=== PATIENT | female | born 1990 | race Caucasian/White ===

== ENCOUNTER 2020-12-18 13:20 | Inpatient (IN) | payer MEDICAID ==
[~2020-12-18] VITALS: Ht 170.2 cm; Wt 92.2 kg
--- NOTE | 2020-12-18 13:43 | NUR ---
MEDICAL STAFF NOTIFIED OF PATIENT SYMPTOMS.
[2020-12-18 14:06] LABS: BASOPHILS 0.2 % (0-2); EOSINOPHILS 0.2 % (0-7); HEMATOCRIT 39.6 % (36.0-48.0); HEMOGLOBIN 13.4 g/dL (12-16); IMMATURE GRANULOCYTES 0.4 % (0-5); LYMPHOCYTES 18.6 % (15-50); MCH 30.2 pg (26.0-34.0); MCHC 33.8 g/dL (31.0-37.0); MCV 89.2 fL (80.0-100.0); MONOCYTES 9.1 % (2-11); NEUTROPHIL ABS# 6.53 10x3/uL (1.56-6.13); NEUTROPHILS 71.5 % (40-80); PLATELET COUNT 220 10x3/uL (130-400); RBC 4.44 10x6/uL (4.00-5.40); RDW 12.1 % (11.5-14.5); WBC 9.1 10x3/uL (4.8-10.8)
[2020-12-18 14:13] LABS: CALC OSMOLALITY 278 mosm/kg (275-300); CALCIUM 9.8 mg/dL (8.5-10.1); CARBON DIOXIDE 27.1 mmol/L (21.0-32.0); CHLORIDE - SERUM 100 mmol/L (98-107); CREATININE - SERUM 0.9 mg/dL (0.6-1.3); GLUCOSE 101 mg/dL (74-106); HCG SERUM NEGATIVE (NEGATIVE); POTASSIUM - SERUM 3.8 mmol/L (3.5-5.1); SODIUM 139 mmol/L (136-145); UREA NITROGEN 15 mg/dL (7-18); eGFR NON AFRICAN AMERICAN 78 mL/min (90-120)
[2020-12-18 14:41] LABS: ALBUMIN 4.4 g/dL (3.4-5.0); ALKALINE PHOSPHATASE 45 U/L (30-120); ALT (SGPT) 33 U/L (10-68); BILIRUBIN - TOTAL 0.45 mg/dL (0.2-1.3); CREATINE KINASE 598 UL (21-215); VALPROIC ACID (DEPAKOTE) 10.5 ug/mL (50.0-100.0)
[2020-12-18 14:42] LABS: CKMB 3.1 U/L (0.0-3.6)
[2020-12-18 15:32] LABS: UDS - AMPHET NEGATIVE QUAL (NEGATIVE); UDS - BARB NEGATIVE QUAL (NEGATIVE); UDS - BENZO POSITIVE QUAL (NEGATIVE); UDS - COCAINE NEGATIVE QUAL (NEGATIVE); UDS - OPIATE NEGATIVE QUAL (NEGATIVE); UDS - PCP NEGATIVE QUAL (NEGATIVE); UDS - THC NEGATIVE QUAL (NEGATIVE)
[2020-12-18 15:43] LABS: BILIRUBIN NEGATIVE (NEGATIVE); KETONE MODERATE mg/dL (NEGATIVE); NITRITE NEGATIVE (NEGATIVE); UROBILINOGEN NORMAL mg/dL (< 2)
[2020-12-18 15:47] LABS: WHITE CELLS - URINE 0-5 HPF (0-4)
[2020-12-18 15:48] LABS: BACTERIA MODERATE HPF (NONE SEEN)
[2020-12-18] MEDS ORDERED: HALDOL5 MG PO (17:08)
[2020-12-18] MEDS ORDERED: ZOLOFT100 MG PO (17:11)
[2020-12-18 17:12] VITALS: BP 125/75; Ht 170.2 cm; Wt 92.2 kg
--- NOTE | 2020-12-18 17:24 | NUR ---
IN ROOM, MOTHER AT BEDSIDE BED LOW POSITION, CALL LIGHT IN REACH. BED ALARM ON. WILL CONTINUE TO MONITOR.
[2020-12-18 17:29] VITALS: BP 122/78
[2020-12-18 21:13] VITALS: BP 129/74
[2020-12-19 00:38] VITALS: BP 110/68
[2020-12-19 05:24] VITALS: BP 119/70
[2020-12-19 07:19] LABS: BASOPHILS 0.3 % (0-2); HEMATOCRIT 35.3 % (36.0-48.0); HEMOGLOBIN 11.7 g/dL (12-16); IMMATURE GRANULOCYTES 0.1 % (0-5); LYMPHOCYTE ABS# 2.09 10x3/uL (1.18-3.74); LYMPHOCYTES 26.8 % (15-50); MCH 29.7 pg (26.0-34.0); MCHC 33.1 g/dL (31.0-37.0); MCV 89.6 fL (80.0-100.0); MEAN PLATELET VOLUME 11.5 fL (7.4-10.4); MONOCYTES 9.1 % (2-11); NEUTROPHILS 62.7 % (40-80); PLATELET COUNT 199 10x3/uL (130-400); RBC 3.94 10x6/uL (4.00-5.40); RDW 12.3 % (11.5-14.5); WBC 7.8 10x3/uL (4.8-10.8)
--- NOTE | 2020-12-19 07:30 | NUR ---
MORNING ROUNDS WERE MADE, FOUND PATIENT SOAKING WET IN URINE. FULL LINEN CHANGE. RESTING IN BED WITH EYES CLOSED BUT IS ALERT AND TALKING THIS MORNING. DENIES ANY NEEDS. BED IN LOWEST POSITION, BED RAILS X2, CALL LIGHT WTHIN REACH. WILL CONTINUE POC.
[2020-12-19 07:36] LABS: ALBUMIN 3.5 g/dL (3.4-5.0); ALKALINE PHOSPHATASE 37 U/L (30-120); ALT (SGPT) 25 U/L (10-68); BILIRUBIN - TOTAL 0.35 mg/dL (0.2-1.3); CALC OSMOLALITY 277 mosm/kg (275-300); CALCIUM 8.2 mg/dL (8.5-10.1); CHLORIDE - SERUM 104 mmol/L (98-107); CKMB 3.4 U/L (0.0-3.6); CREATINE KINASE 517 UL (21-215); CREATININE - SERUM 0.8 mg/dL (0.6-1.3); GLUCOSE 130 mg/dL (74-106); MAGNESIUM - SERUM 2.1 mg/dL (1.8-2.4); PHOSPHOROUS 2.8 mg/dL (2.5-4.9); POTASSIUM - SERUM 3.5 mmol/L (3.5-5.1); PROTEIN - SERUM 6.5 g/dL (6.4-8.2); SODIUM 139 mmol/L (136-145); TROPONIN-I < 0.017 ng/mL (0.000-0.060); eGFR NON AFRICAN AMERICAN 89 mL/min (90-120)
[2020-12-19 07:38] LABS: UREA NITROGEN 7 mg/dL (7-18)
--- NOTE | 2020-12-19 09:15 | NUR ---
AAOX4 UPON ENTERING. REQUESTING ATIVAN. PRN ATIVAN GIVEN. MORNING MEDICATION GIVEN AT THIS TIME WELL. TOLERATED WELL. RESTING COMFORTABLY IN BED, UP RIGHT. DENIES ANY NEEDS AT THIS TIME. BED IN LOWEST POSITION, BED RAILS X2, CALL LIGHT WITHIN REACH. WILL CONTINUE POC.
[2020-12-19 09:29] VITALS: BP 149/77
--- NOTE | 2020-12-19 11:22 | NUR ---
IN BED, EYES CLOSED. BREATHING EVEN AND NONLABORED. NO S/S OF DISTRESS NOTED AT THIS TIME. WILL CONTINUE POC.
[2020-12-19 14:22] VITALS: BP 126/70
--- NOTE | 2020-12-19 15:12 | NUR ---
I have reviewed this patient and I concur with the Shift Assessment completed by the Licensed Practical Nurse today this shift.
--- NOTE | 2020-12-19 19:00 | NUR ---
BEDSIDE REPORT RECEIVED AND CARE OF PT ASSUMED. PT LYING IN LOW GALLEGO'S POSITION VISITING WITH HER MOTHER. IV TO RIGHT AC SALINE LOCKED. SCD'S IN USE ON BLE. WILL MONITOR FOR NEEDS.
[2020-12-19 19:04] VITALS: BP 132/69
--- NOTE | 2020-12-19 21:30 | NUR ---
COLLECTED URINE FOR ORDERED CULTURE AND DELIVERED TO LAB.
--- NOTE | 2020-12-19 21:42 | NUR ---
GAVE PT ATIVAN 2 MG IVP PER REQUEST FOR "SHAKES" AND VERY ANXIOUS. WILL MONITOR FOR EFFECTIVENESS.
--- NOTE | 2020-12-19 22:15 | NUR ---
PT PRESSING CALL LIGHT EVERY 5-10 MINUTES FOR NUMEROUS SOMATIC COMPLAINTS. WANTING WATER CONSTANTLY AND THEN NEEDING BEDPAN CONSTANTLY.
[2020-12-19 22:27] VITALS: BP 123/85
--- NOTE | 2020-12-20 01:24 | NUR ---
GAVE ATIVAN 2 MG IVP PER PT REQUEST FOR ANXIETY AND "SHAKING". PT HAS PRESSED CALL LIGHT EVERY 5 MINUTES ALL NIGHT LONG FOR A VARIETY OF COMPLAINTS....TOO COLD...TOO HOT...WANTS MORE WATER...BEDPAN EVERY 10-15 MINUTES...WANTS HER LEGS MOVED, UNABLE TO MOVE DUE TO BRUISES...WANTS TO CALL FAMILY....WANTS US TO "HELP HER GO TO SLEEP".
--- NOTE | 2020-12-20 01:50 | NUR ---
PT CONTINUES TO PRESS CALL LIGHT EVERY 5 MINUTES...THIS TIME SHE STATES SHE WANTS TO KILL HERSELF...THEN SAID NO, NO...I DON'T. CALLED [employer]OURNEY[employer] WHO IS ORDERING A PSYCH SCREEN ON HER FOR SUICIDAL IDEATION.
--- NOTE | 2020-12-20 02:50 | NUR ---
ASSESSMENT COMPLETED. PT RELATED SHE DID MAKE THE COMMENT REGARDING WANTING TO HOWEVER RELATES SHE DID NOT MEAN IT NOR WOULD SHE EVER TRY TO HURT HERSELF THAT SHE HAS A FIVE YEAR DAUGHTER. RELATED SHE WAS JUST UPSET BECAUSE WHEN SHE WOKE UP HER MOTHER HAD GONE HOME AND SHE DIDN'T GET TO SEE HER BEFORE SHE LEFT BECAUSE SHE WAS SLEEPING. RELATES SHE LIVES WITH HER PARENTS AND DOES NOT WANT TO BE ALONE IN THE HOSPITAL. PATIENT WAS A LEVEL 0 FOR SUICIDE RISK. RESOURCE REVIEWED AND GIVEN TO PATIENT. SHE VERBALIZED UNDERSTANDING.
[2020-12-20 05:27] LABS: BASOPHILS 0.3 % (0-2); EOSINOPHILS 1.4 % (0-7); HEMATOCRIT 35.9 % (36.0-48.0); HEMOGLOBIN 12.1 g/dL (12-16); IMMATURE GRANULOCYTES 0.2 % (0-5); LYMPHOCYTE ABS# 2.19 10x3/uL (1.18-3.74); LYMPHOCYTES 19.9 % (15-50); MCH 30.3 pg (26.0-34.0); MCHC 33.7 g/dL (31.0-37.0); MCV 89.8 fL (80.0-100.0); MEAN PLATELET VOLUME 11.1 fL (7.4-10.4); MONOCYTES 11.3 % (2-11); NEUTROPHIL ABS# 7.39 10x3/uL (1.56-6.13); NEUTROPHILS 66.9 % (40-80); PLATELET COUNT 211 10x3/uL (130-400); RDW 12.2 % (11.5-14.5)
[2020-12-20 05:52] LABS: ALBUMIN 3.5 g/dL (3.4-5.0); ALKALINE PHOSPHATASE 36 U/L (30-120); ALT (SGPT) 25 U/L (10-68); BILIRUBIN - TOTAL 0.22 mg/dL (0.2-1.3); CALC OSMOLALITY 276 mosm/kg (275-300); CALCIUM 8.9 mg/dL (8.5-10.1); CARBON DIOXIDE 27.4 mmol/L (21.0-32.0); CHLORIDE - SERUM 104 mmol/L (98-107); CREATININE - SERUM 0.8 mg/dL (0.6-1.3); GLUCOSE 112 mg/dL (74-106); MAGNESIUM - SERUM 1.9 mg/dL (1.8-2.4); POTASSIUM - SERUM 3.3 mmol/L (3.5-5.1); PROTEIN - SERUM 6.7 g/dL (6.4-8.2); SODIUM 139 mmol/L (136-145); UREA NITROGEN 8 mg/dL (7-18); eGFR NON AFRICAN AMERICAN 89 mL/min (90-120)
--- NOTE | 2020-12-20 06:25 | NUR ---
POTASSIUM LEVEL 3.3 THIS AM REQUIRING COVERAGE WITH 40 MEQ K-DUR PO PER THE [employer]. ORDER PLACED TO RE-CHECK IN 4 HOURS.
--- NOTE | 2020-12-20 08:37 | NUR ---
AAO UPON ENTERING. ADMINISTERED MORNING MEDICATION, NO DIFFICULTIES. RESTING COMFORTABLY IN BED. DENIES ANY NEEDS AT THIS TIME. BED IN LOWEST POSITION, BED RIALS X2, CALL LIGHT WITHIN REACH. WILL CONTINUE POC.
[2020-12-20 09:47] VITALS: BP 135/81
--- NOTE | 2020-12-20 17:10 | NUR ---
PT COMPLAINS OF NAUSEA, SWEATING AND ITCHING. NEW RASH HAS DEVELOPED ON THE CHEST AND UPPER ARMS. CALLED CRIST[facility] POPE. NEW ORDERS FOR MEDICATION ENTERED. PLACED PT ON CONTINUOUS O2 AND SUPPLEMENTAL 02 @ 2L VIA NASAL CANNULA WHILE WAITING FOR ORDERS TO VERIFY. DOES NOT COMPLAIN OF SOB OR SWELLING FEELING IN THE THROAT AT THIS TIME.
--- NOTE | 2020-12-20 17:35 | NUR ---
NEW MEDICATIONS GIVEN, TOLERATED WELL THUS FAR, PT HAS NO NEW COMPLAINTS AT THIS TIME. SITTING UPRIGHT IN BED. TURNED AC DOWN, REMOVED COVERS. STILL WEAR PULSE OX AND SUPPLEMENTAL O2. DENIES ANY NEEDS AT THIS TIME. WILL REASSESS PT IN 15 MINUTES AND CONTINUE POC.
[2020-12-20 18:20] VITALS: BP 128/82
--- NOTE | 2020-12-20 19:00 | NUR ---
BEDSIDE REPORT RECEIVED AND CARE OF PT ASSUMED. PT LYING IN SUPINE POSITION WATCHING TV. SHE REMAINS CONFUSED AND ATTENTION SEEKING. VITALS STABLE AND SPO2 98% AT THIS TIME. WILL MONITOR FOR NEEDS.
--- NOTE | 2020-12-20 21:33 | NUR ---
HS MEDICATIONS GIVEN...GAVE ATIVAN 2 MG IVP PER PT REQUEST FOR ANXIETY.
[2020-12-20 22:06] VITALS: BP 110/66
--- NOTE | 2020-12-21 03:00 | NUR ---
PT RESTED SINCE RECEIVING ATIVAN AT 2132....MORE SLEEP THAT SHE HAS HAD IN A COUPLE OF DAYS.
[2020-12-21 07:00] LABS: BASOPHILS 0.2 % (0-2); EOSINOPHILS 0 % (0-7); HEMATOCRIT 39.2 % (36.0-48.0); HEMOGLOBIN 13.2 g/dL (12-16); IMMATURE GRANULOCYTES 0.2 % (0-5); LYMPHOCYTE ABS# 1.77 10x3/uL (1.18-3.74); LYMPHOCYTES 16.6 % (15-50); MCH 29.9 pg (26.0-34.0); MCHC 33.7 g/dL (31.0-37.0); MCV 88.9 fL (80.0-100.0); MEAN PLATELET VOLUME 11.3 fL (7.4-10.4); MONOCYTES 11.5 % (2-11); NEUTROPHIL ABS# 7.62 10x3/uL (1.56-6.13); NEUTROPHILS 71.5 % (40-80); RBC 4.41 10x6/uL (4.00-5.40); WBC 10.7 10x3/uL (4.8-10.8)
[2020-12-21 07:06] LABS: PLATELET COUNT 264 10x3/uL (130-400)
[2020-12-21 07:27] LABS: ALBUMIN 3.8 g/dL (3.4-5.0); ALKALINE PHOSPHATASE 42 U/L (30-120); ALT (SGPT) 24 U/L (10-68); BILIRUBIN - TOTAL 0.27 mg/dL (0.2-1.3); CALC OSMOLALITY 272 mosm/kg (275-300); CALCIUM 9.5 mg/dL (8.5-10.1); CARBON DIOXIDE 25.5 mmol/L (21.0-32.0); CHLORIDE - SERUM 101 mmol/L (98-107); CREATININE - SERUM 0.7 mg/dL (0.6-1.3); GLUCOSE 107 mg/dL (74-106); MAGNESIUM - SERUM 2.2 mg/dL (1.8-2.4); PHOSPHOROUS 5.1 mg/dL (2.5-4.9); PROTEIN - SERUM 7.4 g/dL (6.4-8.2); SODIUM 137 mmol/L (136-145); UREA NITROGEN 11 mg/dL (7-18); eGFR NON AFRICAN AMERICAN > 90 mL/min (90-120)
[2020-12-21 08:43] VITALS: BP 124/82
--- NOTE | 2020-12-21 09:00 | NUR ---
RECIEVED BEDSIDE REPORT. BED LOW POSITION, CALL LIGHT IN REACH. DENIES NEEDS AT THIS TIME. FREE FROM SIGNS OF DISTRESS. WILL CONTINUE TO MONITOR.
--- NOTE | 2020-12-21 13:18 | MORECARE ---
CASE MANAGEMENT DISCHARGE SUMMARY PATIENT: KB OLVERA UNIT: [id number] ADM DATE: 12/18/20 AGE: 30 : 90 SEX: F ROOM/BED: D.[facility] AUTHOR: SARABJIT,DOC PHYSICIAN: REFERRING PHYSICIAN: EVIE YANG MD DATE OF SERVICE: 12/21/20 Case Management Discharge Planning Summary DCP REVIEW SUMMARY ANTICIPATED D/C DATE: EXPECTED LOS : CASE STATUS: DCP Initiated INITIAL REVIEW: 12/18/2020 INITIAL REVIEWER: Yolanda Garcia FINAL DISCHARGE DISPOSITION: : FINAL REVIEWER: FINAL REVIEW DATE: DCP Focus Questions & Answers DCP Screen QUESTION: ANSWER High Risk Factors: : Psychological: Depression and/or major BH Dx req inter DCP Evaluation QUESTION: ANSWER Patient's ability to cope with chronic illness : d. No chronic illness Would patient like to participate in any Care Coordination programs (if applicable): : Not applicable Mental health screen: : No mental health history DCP Re-evaluation QUESTION: ANSWER Would patient like to participate in any Care Coordination programs (if applicable): : Not applicable PATIENT: KB OLVERA ENCOUNTER: [id number] MEDICAL RECORD#: [id number] ADMISSION DATE: 12/18/2020 DISCHARGE DATE: ATTENDING MD: EVIE BEAVERS : AGE: 30 MARITAL STATUS: S DC PLAN ID: [id number] FACILITY: [facility] PRINTED ON: 12/21/20 13:18 CT All edits/amendments must be made on the electronic document DICTATION DATE: 12/21/201317 SOLAR PROCESS ENGINEER: DM 12/21/20 131 RPT#: [id number] DC DATE: STATUS: ADM IN [facility] [address] [place] [address] END OF REPORT
--- NOTE | 2020-12-21 13:32 | MORECARE ---
CASE MANAGEMENT DISCHARGE SUMMARY PATIENT: KB OLVERA UNIT: [id number] ADM DATE: 12/18/20 AGE: 30 : 90 SEX: F ROOM/BED: D.2214 AUTHOR: JAMES WHIPPLE PHYSICIAN: REFERRING PHYSICIAN: EVIE YANG MD DATE OF SERVICE: 12/21/20 Case Management Discharge Planning Summary DCP REVIEW SUMMARY ANTICIPATED D/C DATE: EXPECTED LOS : CASE STATUS: DCP Initiated INITIAL REVIEW: 12/18/2020 INITIAL REVIEWER: Yolanda Garcia FINAL DISCHARGE DISPOSITION: : FINAL REVIEWER: FINAL REVIEW DATE: DCP Focus Questions & Answers DCP Screen QUESTION: ANSWER High Risk Factors: : Psychological: Depression and/or major BH Dx req inter DCP Evaluation QUESTION: ANSWER Patient and/or caregiver agree upon recommended discharge plan? : Yes Family / Caregiver's ability to cope with chronic illness: : c. Inadequate (Enables pt. to make bad choices, cannot meet pt's. needs, difficult family dynamics) Patient's current cognitive status: : Intermittently confused / memory changes Patient gives permission to discuss discharge plans with: (name, relationship and number) : MOTHER Patient's ability to cope with chronic illness : a. Adequate (0-3 ED visits in 6 mos., adequate financial resources, attends scheduled appts.) Does the patient have the ability to pay for or attain post discharge needs / services? : Yes Functional screen assessment: : New onset in difficulty in gait, balance, or transfer difficulties Functional screen assessment: : Basic needs can adequately be met by self Family / Caregiver's ability to cope with chronic illness: : b. Minimal (occasionally not dependable to meet pt's. needs, can meet pt's. basic ADL's) Physical Status: : Partial care dependence Equipment needed for post hospitalization: : Walker - Rolling Is there a likelihood that the patient will require additional services to return to the preadmission environment? : Yes Functional screen comments: : NEEDS THEARPY Living Arrangements: : Home with Parents Partial Dependence, assistance required for: : Bathing Partial Dependence, assistance required for: : Ambulation / Mobility Results of this evaluation have been discussed with: : Guardian Patient with capacity for self-care or can be cared for in same environment as prior to hospitalization? : No Living arrangements comments: : LIVES WITH PARENTS & 5 YEAR OLD SON Baseline cognitive status: : *Oriented to person, place, situation, time and present Comments: : MOM IN ROOM WHILE I WAS SPEAKING WITH PATIENT Physical environment referral comments (if applicable): : REFERAL SENT TO [facility] Medication Management: : Evidence of High Risk Meds (check hospital policy) Planned post hospital services available for patient? : Yes Pharmacy name(s): : [facility] [address] Planned post hospital services covered by insurance plan? : Yes Does Patient have transportation to get home and to follow-up medical appointments when discharged from the hospital? : Yes Would patient like to participate in any Care Coordination programs (if applicable): : Not applicable Does the patient have electricity at home? : Yes Does the patient have running water in their house? : Yes Equipment in use: : None Mental health screen: : Currently under the care of mental health provider Mental health provider name and contact information: : DR FELIPE LOZADA Psychosocial status: : Adult with physical limitations Psychosocial status: : Adult with cognitive limitations Resources / Services in place: : Inpatient rehabilitation facility Contact information for resources in use: : WAS JUST IN [facility] Problems identified by the patient regarding discharge: : SOMEONE TO HELP CARE FOR HER DCP Re-evaluation QUESTION: ANSWER Would patient like to participate in any Care Coordination programs (if applicable): : Not applicable PATIENT: KB OLVERA ENCOUNTER: [id number] MEDICAL RECORD#: [id number] ADMISSION DATE: 12/18/2020 DISCHARGE DATE: ATTENDING MD: EVIE BEAVERS : AGE: 30 MARITAL STATUS: S DC PLAN ID: [id number] FACILITY: [facility] PRINTED ON: 12/21/20 13:31 CT All edits/amendments must be made on the electronic document DICTATION DATE: 12/21/20 1331 CORK INSULATION SETTER: DM 12/21/20 1331 RPT#: [id number] DC DATE: STATUS: ADM IN [facility] [address] [place] [address] END OF REPORT
[2020-12-21 14:19] VITALS: BP 129/73
--- NOTE | 2020-12-21 16:50 | NUR ---
REHAB PRESCREEN ORDER RECEIVED. UNFORTUNATELLY WE ARE UNABLE TO ACCEPT MEDICAID PATIENTS AND THEREFORE WILL HAVE TO DECLINE THE PATIENT. THANK YOU FOR THE REFERRAL. SLICK NAVARRO RN CLINICAL LIAISON, INPATIENT REHAB.
[2020-12-21 17:30] VITALS: BP 124/66
[2020-12-22] VITALS: BP 121/67
[2020-12-22 04:00] VITALS: BP 124/75
[2020-12-22 06:30] LABS: ALBUMIN 3.3 g/dL (3.4-5.0); ALKALINE PHOSPHATASE 33 U/L (30-120); ALT (SGPT) 20 U/L (10-68); BILIRUBIN - TOTAL 0.22 mg/dL (0.2-1.3); CALC OSMOLALITY 273 mosm/kg (275-300); CALCIUM 8.8 mg/dL (8.5-10.1); CARBON DIOXIDE 27.3 mmol/L (21.0-32.0); CHLORIDE - SERUM 104 mmol/L (98-107); CREATININE - SERUM 0.7 mg/dL (0.6-1.3); GLUCOSE 86 mg/dL (74-106); PHOSPHOROUS 3.6 mg/dL (2.5-4.9); POTASSIUM - SERUM 3.9 mmol/L (3.5-5.1); PROTEIN - SERUM 6.5 g/dL (6.4-8.2); SODIUM 138 mmol/L (136-145); UREA NITROGEN 11 mg/dL (7-18); eGFR NON AFRICAN AMERICAN > 90 mL/min (90-120)
[2020-12-22 06:46] LABS: BASOPHILS 0.3 % (0-2); EOSINOPHILS 2.5 % (0-7); HEMATOCRIT 36.9 % (36.0-48.0); HEMOGLOBIN 12.3 g/dL (12-16); IMMATURE GRANULOCYTES 0.2 % (0-5); LYMPHOCYTE ABS# 3.17 10x3/uL (1.18-3.74); MCH 29.7 pg (26.0-34.0); MCHC 33.3 g/dL (31.0-37.0); MCV 89.1 fL (80.0-100.0); MEAN PLATELET VOLUME 10.8 fL (7.4-10.4); MONOCYTES 10.6 % (2-11); NEUTROPHIL ABS# 5.12 10x3/uL (1.56-6.13); NEUTROPHILS 53.4 % (40-80); PLATELET COUNT 248 10x3/uL (130-400); RBC 4.14 10x6/uL (4.00-5.40); RDW 12.4 % (11.5-14.5); WBC 9.6 10x3/uL (4.8-10.8)
--- NOTE | 2020-12-22 07:30 | NUR ---
RECIEVED BEDSIDE REPORT. BED LOW POSITION, CALL LIGHT IN REACH. AROUSES TO VOICE. DENIES NEEDS AT THIS TIME. IV INFUSING PER MAR. WILL CONTINUE TO MONITOR.
--- NOTE | 2020-12-22 07:39 | NUR ---
PATIENT APPEARED TO REST WELL THIS SHIFT, SHE DENIES PAIN, CURRENTLY RESTING IN BED WITH HER EYES CLOSED.
--- NOTE | 2020-12-22 09:28 | MORECARE ---
CASE MANAGEMENT DISCHARGE SUMMARY PATIENT: KB OLVERA UNIT: [id number] ADM DATE: 12/18/20 AGE: 30 : 90 SEX: F ROOM/BED: D.2214 AUTHOR: SARABJIT,DOC PHYSICIAN: REFERRING PHYSICIAN: EVIE YANG MD DATE OF SERVICE: 12/22/20 Case Management Discharge Planning Summary COMMENTS ENTERED DATE: 12/21/20 13:22 CT COMMENT TYPE: Discharge Planning REVIEWER: Yolanda Garcia CM met with patient to complete initial dc planning assessment. CM educated patient on the CM role and verbal consent given by patient to complete assessment. Patient lives at home with her mother, father and 5 year old son. Prior to this admission hospital stay she was recently discharged from [facility] for a 10 day stay there. She was discharged on MondayDecember 15. She see's Dr Nya Lozada . At discharge patient would like to physical therapy rehab before going home. Her mom, Faustino stated that she is "shuffling" instead of walking. The patient stated that she does not have any DME and did not need any prior to going to [facility]. I have sent the referral to [facility] and she is agreeable to go if accepted. I explained the difference home with home health and inpatient rehab which is her only options for PT. Patient denied known discharge needs at this time. CM will continue to follow and will assist as needed with dc plans/needs. DCP REVIEW SUMMARY ANTICIPATED D/C DATE: EXPECTED LOS : CASE STATUS: DCP Initiated INITIAL REVIEW: 12/18/2020 INITIAL REVIEWER: Yolanda Garcia FINAL DISCHARGE DISPOSITION: : FINAL REVIEWER: FINAL REVIEW DATE: DCP Focus Questions & Answers DCP Screen QUESTION: ANSWER High Risk Factors: : Psychological: Depression and/or major BH Dx req inter DCP Evaluation QUESTION: ANSWER Patient and/or caregiver agree upon recommended discharge plan? : Yes Family / Caregiver's ability to cope with chronic illness: : c. Inadequate (Enables pt. to make bad choices, cannot meet pt's. needs, difficult family dynamics) Patient's current cognitive status: : Intermittently confused / memory changes Patient gives permission to discuss discharge plans with: (name, relationship and number) : MOTHER Patient's ability to cope with chronic illness : a. Adequate (0-3 ED visits in 6 mos., adequate financial resources, attends scheduled appts.) Does the patient have the ability to pay for or attain post discharge needs / services? : Yes Functional screen assessment: : New onset in difficulty in gait, balance, or transfer difficulties Functional screen assessment: : Basic needs can adequately be met by self Family / Caregiver's ability to cope with chronic illness: : b. Minimal (occasionally not dependable to meet pt's. needs, can meet pt's. basic ADL's) Physical Status: : Partial care dependence Equipment needed for post hospitalization: : Walker - Rolling Is there a likelihood that the patient will require additional services to return to the preadmission environment? : Yes Functional screen comments: : NEEDS THEARPY Living Arrangements: : Home with Parents Partial Dependence, assistance required for: : Bathing Partial Dependence, assistance required for: : Ambulation / Mobility Results of this evaluation have been discussed with: : Guardian Patient with capacity for self-care or can be cared for in same environment as prior to hospitalization? : No Living arrangements comments: : LIVES WITH PARENTS & 5 YEAR OLD SON Baseline cognitive status: : *Oriented to person, place, situation, time and present Comments: : MOM IN ROOM WHILE I WAS SPEAKING WITH PATIENT Physical environment referral comments (if applicable): : REFERAL SENT TO [facility] Medication Management: : Evidence of High Risk Meds (check hospital policy) Planned post hospital services available for patient? : Yes Pharmacy name(s): : [facility] [address] Planned post hospital services covered by insurance plan? : Yes Does Patient have transportation to get home and to follow-up medical appointments when discharged from the hospital? : Yes Would patient like to participate in any Care Coordination programs (if applicable): : Not applicable Does the patient have electricity at home? : Yes Does the patient have running water in their house? : Yes Equipment in use: : None Mental health screen: : Currently under the care of mental health provider Mental health provider name and contact information: : DR NYA LOZADA Psychosocial status: : Adult with physical limitations Psychosocial status: : Adult with cognitive limitations Resources / Services in place: : Inpatient rehabilitation facility Contact information for resources in use: : WAS JUST IN [facility] Problems identified by the patient regarding discharge: : SOMEONE TO HELP CARE FOR HER DCP Re-evaluation QUESTION: ANSWER Would patient like to participate in any Care Coordination programs (if applicable): : Not applicable PATIENT: KB OLVERA ENCOUNTER: [id number] MEDICAL RECORD#: [id number] ADMISSION DATE: 12/18/2020 DISCHARGE DATE: ATTENDING MD: EVIE BEAVERS : AGE: 30 MARITAL STATUS: S DC PLAN ID: [id number] FACILITY: [facility] PRINTED ON: 12/22/20 9:28 CT All edits/amendments must be made on the electronic document DICTATION DATE: 12/22/20927 SOCIOLOGY TEACHER: HUGO 12/22/20927 RPT#: [id number] DC DATE: STATUS: ADM IN [facility] [address] [place] [address] END OF REPORT
[2020-12-22 10:46] VITALS: BP 124/76
[2020-12-22] MEDS ORDERED: ATIVAN1 MG PO (13:23)
[2020-12-22 14:00] VITALS: BP 115/73
--- NOTE | 2020-12-22 14:20 | MORECARE ---
CASE MANAGEMENT DISCHARGE SUMMARY PATIENT: KB OLVERA UNIT: [id number] ADM DATE: 12/18/20 AGE: 30 : 90 SEX: F ROOM/BED: D.2214 AUTHOR: SARABJIT,DOC PHYSICIAN: REFERRING PHYSICIAN: EVIE YANG MD DATE OF SERVICE: 12/22/20 Case Management Discharge Planning Summary COMMENTS ENTERED DATE: 12/22/20 14:13 CT COMMENT TYPE: Discharge Planning REVIEWER: Yolanda GARAY WILL BE COMING OVER TO SEE THE PATIENT CM TO FOLLOW ENTERED DATE: 12/21/20 13:22 CT COMMENT TYPE: Discharge Planning REVIEWER: Yolanda Garcia CM met with patient to complete initial dc planning assessment. CM educated patient on the CM role and verbal consent given by patient to complete assessment. Patient lives at home with her mother, father and 5 year old son. Prior to this admission hospital stay she was recently discharged from [facility] for a 10 day stay there. She was discharged on MondayDecember 15. She see's Dr Nya Lozada . At discharge patient would like to physical therapy rehab before going home. Her mom, Faustino stated that she is "shuffling" instead of walking. The patient stated that she does not have any DME and did not need any prior to going to [facility]. I have sent the referral to [facility] and she is agreeable to go if accepted. I explained the difference home with home health and inpatient rehab which is her only options for PT. Patient denied known discharge needs at this time. CM will continue to follow and will assist as needed with dc plans/needs. DCP REVIEW SUMMARY ANTICIPATED D/C DATE: EXPECTED LOS : CASE STATUS: DCP Initiated INITIAL REVIEW: 12/18/2020 INITIAL REVIEWER: Yolanda Garcia FINAL DISCHARGE DISPOSITION: : FINAL REVIEWER: FINAL REVIEW DATE: DCP Focus Questions & Answers DCP Screen QUESTION: ANSWER High Risk Factors: : Psychological: Depression and/or major BH Dx req inter DCP Evaluation QUESTION: ANSWER Patient and/or caregiver agree upon recommended discharge plan? : Yes Family / Caregiver's ability to cope with chronic illness: : c. Inadequate (Enables pt. to make bad choices, cannot meet pt's. needs, difficult family dynamics) Patient's current cognitive status: : Intermittently confused / memory changes Patient gives permission to discuss discharge plans with: (name, relationship and number) : MOTHER Patient's ability to cope with chronic illness : a. Adequate (0-3 ED visits in 6 mos., adequate financial resources, attends scheduled appts.) Does the patient have the ability to pay for or attain post discharge needs / services? : Yes Functional screen assessment: : New onset in difficulty in gait, balance, or transfer difficulties Functional screen assessment: : Basic needs can adequately be met by self Family / Caregiver's ability to cope with chronic illness: : b. Minimal (occasionally not dependable to meet pt's. needs, can meet pt's. basic ADL's) Physical Status: : Partial care dependence Equipment needed for post hospitalization: : Walker - Rolling Is there a likelihood that the patient will require additional services to return to the preadmission environment? : Yes Functional screen comments: : NEEDS THEARPY Living Arrangements: : Home with Parents Partial Dependence, assistance required for: : Bathing Partial Dependence, assistance required for: : Ambulation / Mobility Results of this evaluation have been discussed with: : Guardian Patient with capacity for self-care or can be cared for in same environment as prior to hospitalization? : No Living arrangements comments: : LIVES WITH PARENTS & 5 YEAR OLD SON Baseline cognitive status: : *Oriented to person, place, situation, time and present Comments: : MOM IN ROOM WHILE I WAS SPEAKING WITH PATIENT Physical environment referral comments (if applicable): : REFERAL SENT TO [facility] Medication Management: : Evidence of High Risk Meds (check hospital policy) Planned post hospital services available for patient? : Yes Pharmacy name(s): : [email or web address] [address] Planned post hospital services covered by insurance plan? : Yes Does Patient have transportation to get home and to follow-up medical appointments when discharged from the hospital? : Yes Would patient like to participate in any Care Coordination programs (if applicable): : Not applicable Does the patient have electricity at home? : Yes Does the patient have running water in their house? : Yes Equipment in use: : None Mental health screen: : Currently under the care of mental health provider Mental health provider name and contact information: : DR NYA LOZADA Psychosocial status: : Adult with physical limitations Psychosocial status: : Adult with cognitive limitations Resources / Services in place: : Inpatient rehabilitation facility Contact information for resources in use: : WAS JUST [facility] Problems identified by the patient regarding discharge: : SOMEONE TO HELP CARE FOR HER DCP Re-evaluation QUESTION: ANSWER Would patient like to participate in any Care Coordination programs (if applicable): : Not applicable PATIENT: KB OLVERA ENCOUNTER: [id number] MEDICAL RECORD#: [id number] ADMISSION DATE: 12/18/2020 DISCHARGE DATE: ATTENDING MD: EVIE BEAVERS : AGE: 30 MARITAL STATUS: S DC PLAN ID: [id number] FACILITY: [facility] PRINTED ON: 12/22/20 14:20 CT All edits/amendments must be made on the electronic document DICTATION DATE: 12/22/201418 SAFETY AIDE: HUGO 12/22/201418 RPT#: [id number] DC DATE: STATUS: ADM IN [facility] [address] [place] [address] END OF REPORT
--- NOTE | 2020-12-22 14:48 | NUR ---
SITTING UP IN CHAIR. TALKING ON THE PHONE. DENIES NEEDS AT THIS TIME. NON SLIP SOCKS ON. CALL BUTTON IN REACH. WILL CONTINUE TO MONITOR.
--- NOTE | 2020-12-22 15:38 | MORECARE ---
CASE MANAGEMENT DISCHARGE SUMMARY PATIENT: KB OLVERA UNIT: [id number] ADM DATE: 12/18/20 AGE: 30 : 90 SEX: F ROOM/BED: D.2214 AUTHOR: SARABJIT,DOC PHYSICIAN: REFERRING PHYSICIAN: EVIE YANG MD DATE OF SERVICE: 12/22/20 Case Management Discharge Planning Summary COMMENTS ENTERED DATE: 12/22/20 15:34 CT COMMENT TYPE: Discharge Planning REVIEWER: Yolanda Capps with [employer] is here speaking with patient ENTERED DATE: 12/22/20 14:13 CT COMMENT TYPE: Discharge Planning REVIEWER: Yolanda GARAY WILL BE COMING OVER TO SEE THE PATIENT CM TO FOLLOW ENTERED DATE: 12/21/20 13:22 CT COMMENT TYPE: Discharge Planning REVIEWER: Yolanda Garcia CM met with patient to complete initial dc planning assessment. CM educated patient on the CM role and verbal consent given by patient to complete assessment. Patient lives at home with her mother, father and 5 year old son. Prior to this admission hospital stay she was recently discharged from [facility] for a 10 day stay there. She was discharged on MondayDecember 15. She see's Dr Nya Lozada . At discharge patient would like to physical therapy rehab before going home. Her mom, Faustino stated that she is "shuffling" instead of walking. The patient stated that she does not have any DME and did not need any prior to going to [facility]. I have sent the referral to [facility] and she is agreeable to go if accepted. I explained the difference home with home health and inpatient rehab which is her only options for PT. Patient denied known discharge needs at this time. CM will continue to follow and will assist as needed with dc plans/needs. DCP REVIEW SUMMARY ANTICIPATED D/C DATE: EXPECTED LOS : CASE STATUS: DCP Initiated INITIAL REVIEW: 12/18/2020 INITIAL REVIEWER: Yolanda Garcia FINAL DISCHARGE DISPOSITION: : FINAL REVIEWER: FINAL REVIEW DATE: DCP Focus Questions & Answers DCP Screen QUESTION: ANSWER High Risk Factors: : Psychological: Depression and/or major BH Dx req inter DCP Evaluation QUESTION: ANSWER Patient and/or caregiver agree upon recommended discharge plan? : Yes Family / Caregiver's ability to cope with chronic illness: : c. Inadequate (Enables pt. to make bad choices, cannot meet pt's. needs, difficult family dynamics) Patient's current cognitive status: : Intermittently confused / memory changes Patient gives permission to discuss discharge plans with: (name, relationship and number) : MOTHER Patient's ability to cope with chronic illness : a. Adequate (0-3 ED visits in 6 mos., adequate financial resources, attends scheduled appts.) Does the patient have the ability to pay for or attain post discharge needs / services? : Yes Functional screen assessment: : New onset in difficulty in gait, balance, or transfer difficulties Functional screen assessment: : Basic needs can adequately be met by self Family / Caregiver's ability to cope with chronic illness: : b. Minimal (occasionally not dependable to meet pt's. needs, can meet pt's. basic ADL's) Physical Status: : Partial care dependence Equipment needed for post hospitalization: : Walker - Rolling Is there a likelihood that the patient will require additional services to return to the preadmission environment? : Yes Functional screen comments: : NEEDS THEARPY Living Arrangements: : Home with Parents Partial Dependence, assistance required for: : Bathing Partial Dependence, assistance required for: : Ambulation / Mobility Results of this evaluation have been discussed with: : Guardian Patient with capacity for self-care or can be cared for in same environment as prior to hospitalization? : No Living arrangements comments: : LIVES WITH PARENTS & 5 YEAR OLD SON Baseline cognitive status: : *Oriented to person, place, situation, time and present Comments: : MOM IN ROOM WHILE I WAS SPEAKING WITH PATIENT Physical environment referral comments (if applicable): : REFERAL SENT TO [facility] Medication Management: : Evidence of High Risk Meds (check hospital policy) Planned post hospital services available for patient? : Yes Pharmacy name(s): : [facility] [address] Planned post hospital services covered by insurance plan? : Yes Does Patient have transportation to get home and to follow-up medical appointments when discharged from the hospital? : Yes Would patient like to participate in any Care Coordination programs (if applicable): : Not applicable Does the patient have electricity at home? : Yes Does the patient have running water in their house? : Yes Equipment in use: : None Mental health screen: : Currently under the care of mental health provider Mental health provider name and contact information: : DR NYA LOZADA Psychosocial status: : Adult with physical limitations Psychosocial status: : Adult with cognitive limitations Resources / Services in place: : Inpatient rehabilitation facility Contact information for resources in use: : WAS JUST [facility] Problems identified by the patient regarding discharge: : SOMEONE TO HELP CARE FOR HER DCP Re-evaluation QUESTION: ANSWER Would patient like to participate in any Care Coordination programs (if applicable): : Not applicable PATIENT: KB OLVERA ENCOUNTER: [id number] MEDICAL RECORD#: [id number] ADMISSION DATE: 12/18/2020 DISCHARGE DATE: ATTENDING MD: EVIE BEAVERS : AGE: 30 MARITAL STATUS: S DC PLAN ID: [id number] FACILITY: [facility] PRINTED ON: 12/22/20 15:38 CT All edits/amendments must be made on the electronic document DICTATION DATE: 12/22/201537 PRECISION DYER: HUGO 12/22/201537 RPT#: [id number] DC DATE: STATUS: ADM IN [facility] [address] [place] [address] END OF REPORT
--- NOTE | 2020-12-22 16:04 | PN ---
PATIENT:KB OLVERA MEDICAL RECORD: [id number] LOCATION:[facility] ADMISSION DATE: 12/18/20 PROGRESS NOTE DATE OF SERVICE: 12/21/2020 SUBJECTIVE: The patient's case was discussed with staff. She has no new complaint. OBJECTIVE: The patient is fully oriented to person, place, time and situation. Her mood is flat. Her affect is appropriate. She has no psychotic symptoms and no thoughts of harming herself or others. ASSESSMENT: Neuroleptic malignant syndrome. PLAN: The patient's vital signs and labs have improved. If this was neuroleptic malignant syndrome, it seems to have resolved or improved. The patient herself is not showing any overt psychiatric needs. Right now, she is still having some difficulty walking and it is my understanding from the mother who is present and was very helpful in providing information that the patient is going to go to rehab to receive some physical therapy. The situation with the neuroleptic malignant syndrome or reaction to the medication whatever it might have what appears to again have resolved. With regard to underlying psychiatric care. There is no evidence of acute psychiatric need at this point. The patient has an appointment with Dr. Murry and should keep that appointment upon discharge. I do think she should take Ativan until her rigidity has resolved. Follow up should be with the outpatient psychiatrist. I have no recommendations for psychoactive medications at this time. Exactly what the patient's condition is somewhat nebulous. I saw where she had been diagnosed or reportedly diagnosed with schizophrenia, but the patient and her mother say that term has never been applied. They describe a longitudinal history that sounds consistent with anxiety and moderate depression, so I think that since there are no acute needs, this can best be sorted out on an outpatient basis by Dr. Murry. TRANSINT:[id number] Voice Confirmation ID: [id number] DOCUMENT ID: [id number] JAZIEL SWENSON MD at 1604 CC: [id number] DICTATION DATE: 12/21/201655 DOOR ASSEMBLER: 12/21/202228 ADM IN [place] [address] [place] [address]
--- NOTE | 2020-12-22 17:12 | NUR ---
OT NOTE: PT REQUIRED EXTRA TIME TO PROCESS REQUEST. PT COMPLETED SIT TO STAND WITH SBA. PT COMPLETED SITTING BALANCE WITH SPV-MOD I.PT DID WELL. [id number] THANK YOU,TATI TUBBS
--- NOTE | 2020-12-22 17:12 | NUR ---
OT NOTE: PT DOING BETTER TODAY STRENGTH HUFF.. BED MOB WITH SPV; PRACTICED SIT TO STAND ACT WITH CGA X 5 TRIALS TO IMPROVE UE STRENGTH; AMB INTO HALLWAY GREATER THAN 100 FT WITH SHOW DESIGN SUPERVISOR..NO LOB OR REST BREAK REQUIRED. PERFORMED GROOMING TASKS AT SINK WITH CGA.. VERBAL CUES FOR DIRECTION FOR EACH TASK. TOILETING WITH CGA. CONT TO HAVE SLIGHT DELAY IN RESPONSES NORIS CHAVEZ, OTR/L [id number]
[2020-12-22 17:29] VITALS: BP 123/67
[2020-12-22 20:00] VITALS: BP 108/61
[2020-12-23] VITALS: BP 114/65
[2020-12-23 04:00] VITALS: BP 144/88
--- NOTE | 2020-12-23 04:04 | NUR ---
PATIENT RESTED WELL, DENIES PAIN, SHE IS CURRENTLY RESTING IN BED.
[2020-12-23 07:11] LABS: BASOPHILS 0.3 % (0-2); EOSINOPHILS 3.1 % (0-7); HEMATOCRIT 38.4 % (36.0-48.0); HEMOGLOBIN 12.7 g/dL (12-16); IMMATURE GRANULOCYTES 0.3 % (0-5); LYMPHOCYTE ABS# 2.67 10x3/uL (1.18-3.74); LYMPHOCYTES 28.1 % (15-50); MCH 29.6 pg (26.0-34.0); MCHC 33.1 g/dL (31.0-37.0); MCV 89.5 fL (80.0-100.0); MEAN PLATELET VOLUME 10.7 fL (7.4-10.4); MONOCYTES 10.4 % (2-11); NEUTROPHIL ABS# 5.49 10x3/uL (1.56-6.13); NEUTROPHILS 57.8 % (40-80); PLATELET COUNT 292 10x3/uL (130-400); RBC 4.29 10x6/uL (4.00-5.40); RDW 12.4 % (11.5-14.5); WBC 9.5 10x3/uL (4.8-10.8)
[2020-12-23 07:43] LABS: ALBUMIN 3.6 g/dL (3.4-5.0); ALKALINE PHOSPHATASE 37 U/L (30-120); BILIRUBIN - TOTAL 0.26 mg/dL (0.2-1.3); CALCIUM 9.3 mg/dL (8.5-10.1); CARBON DIOXIDE 26.8 mmol/L (21.0-32.0); CHLORIDE - SERUM 102 mmol/L (98-107); CREATININE - SERUM 0.8 mg/dL (0.6-1.3); GLUCOSE 86 mg/dL (74-106); PHOSPHOROUS 3.7 mg/dL (2.5-4.9); POTASSIUM - SERUM 3.5 mmol/L (3.5-5.1); SODIUM 138 mmol/L (136-145); eGFR NON AFRICAN AMERICAN 89 mL/min (90-120)
[2020-12-23 07:44] LABS: ALT (SGPT) 31 U/L (10-68); CALC OSMOLALITY 272 mosm/kg (275-300); UREA NITROGEN 7 mg/dL (7-18)
--- NOTE | 2020-12-23 07:55 | NUR ---
RESTING IN BED WITH EYES CLOSED, EASILY AROUSED TO SPEECH. NO IV ACCESS. SCDS IN PLACE. NO CURRENT S/S OF DISTRESS AT THIS TIME, DENIES CURRENT NEEDS, WILL CONT TO MONITOR.
[2020-12-23 08:47] VITALS: BP 118/75
[2020-12-23 12:25] VITALS: BP 117/69
--- NOTE | 2020-12-23 14:56 | MORECARE ---
CASE MANAGEMENT DISCHARGE SUMMARY PATIENT: KB OLVEAR UNIT: [id number] ADM DATE: 12/18/20 AGE: 30 : 90 SEX: F ROOM/BED: D.2214 AUTHOR: SARABJIT,DOC PHYSICIAN: REFERRING PHYSICIAN: EVIE YANG MD DATE OF SERVICE: 12/23/20 Case Management Discharge Planning Summary COMMENTS ENTERED DATE: 12/23/20 14:46 CT COMMENT TYPE: Discharge Planning REVIEWER: Yolanda Garcia I WAS TOLD 12/22/20 AFTER 1700 THAT THE MD HAD DENIED THE PATIENT TO COME TO REHAB UNFORTUNATELY I HAD ALREADY LEFT THE HOSPITAL AND WAS UNABLE TO TELL THE PATIENT AND THE MOTHER ABOUT THIS. I CALLED THE MOTHER THIS MORNING TO LET HER KNOW AND SHE DIDN'T UNDERSTAND WHY THIS HAPPENED. I TRIED TO EXPLAIN TO HER AGAIN IN ADDITION THAT THE PT NOTES STATES THAT SHE IS AMBULATING WITHOUT ANY DIFFICULTIES 250 FT WITHOUT ANY DME. I EXPLAINED TO HER THAT [facility] WILL PAY FOR HOME HEALTH OR OUTPATIENT THEARPY IF SHE NEEDED IT, BUT I DIDN'T THINK SHE DID BASED OFF THE THERAPY NOTES. I EXPLAINED TO HER THAT SHE THOUGHT HER DAUGHER NEEDED PT/OT THAT I COULD SET THAT UP IF SHE WANTED. SHE SAID THAT SHE WOULD NEED TO SPEAK TO HER AND ASKED THAT I CALL HER BACK I ATTEMPTED TO CALL HER BACK, BUT SHE DID NOT ANSWER THE PHONE. I LEFT A MESSAGE FOR HER TO RETURN MY CALL & AT THIS POINT I HAVE NOT HEARD FROM HER ENTERED DATE: 12/22/20 15:34 CT COMMENT TYPE: Discharge Planning REVIEWER: Yolanda Garay is here speaking with patient ENTERED DATE: 12/22/20 14:13 CT COMMENT TYPE: Discharge Planning REVIEWER: Yolanda GARAY WILL BE COMING OVER TO SEE THE PATIENT CM TO FOLLOW ENTERED DATE: 12/21/20 13:22 CT COMMENT TYPE: Discharge Planning REVIEWER: Yolanda Garcia CM met with patient to complete initial dc planning assessment. CM educated patient on the CM role and verbal consent given by patient to complete assessment. Patient lives at home with her mother, father and 5 year old son. Prior to this admission hospital stay she was recently discharged from [facility] for a 10 day stay there. She was discharged on MondayDecember 15. She see's Dr Nya Lozada . At discharge patient would like to physical therapy rehab before going home. Her mom, Faustino stated that she is "shuffling" instead of walking. The patient stated that she does not have any DME and did not need any prior to going to [facility]. I have sent the referral to [facility] and she is agreeable to go if accepted. I explained the difference home with home health and inpatient rehab which is her only options for PT. Patient denied known discharge needs at this time. CM will continue to follow and will assist as needed with dc plans/needs. DCP REVIEW SUMMARY ANTICIPATED D/C DATE: EXPECTED LOS : CASE STATUS: DCP Initiated INITIAL REVIEW: 12/18/2020 INITIAL REVIEWER: Yolanda Garcia FINAL DISCHARGE DISPOSITION: : FINAL REVIEWER: FINAL REVIEW DATE: DCP Focus Questions & Answers DCP Screen QUESTION: ANSWER High Risk Factors: : Psychological: Depression and/or major BH Dx req inter DCP Evaluation QUESTION: ANSWER Patient and/or caregiver agree upon recommended discharge plan? : Yes Family / Caregiver's ability to cope with chronic illness: : c. Inadequate (Enables pt. to make bad choices, cannot meet pt's. needs, difficult family dynamics) Patient's current cognitive status: : Intermittently confused / memory changes Patient gives permission to discuss discharge plans with: (name, relationship and number) : MOTHER Patient's ability to cope with chronic illness : a. Adequate (0-3 ED visits in 6 mos., adequate financial resources, attends scheduled appts.) Does the patient have the ability to pay for or attain post discharge needs / services? : Yes Functional screen assessment: : New onset in difficulty in gait, balance, or transfer difficulties Functional screen assessment: : Basic needs can adequately be met by self Family / Caregiver's ability to cope with chronic illness: : b. Minimal (occasionally not dependable to meet pt's. needs, can meet pt's. basic ADL's) Physical Status: : Partial care dependence Equipment needed for post hospitalization: : Walker - Rolling Is there a likelihood that the patient will require additional services to return to the preadmission environment? : Yes Functional screen comments: : NEEDS THEARPY Living Arrangements: : Home with Parents Partial Dependence, assistance required for: : Bathing Partial Dependence, assistance required for: : Ambulation / Mobility Results of this evaluation have been discussed with: : Guardian Patient with capacity for self-care or can be cared for in same environment as prior to hospitalization? : No Living arrangements comments: : LIVES WITH PARENTS & 5 YEAR OLD SON Baseline cognitive status: : *Oriented to person, place, situation, time and present Comments: : MOM IN ROOM WHILE I WAS SPEAKING WITH PATIENT Physical environment referral comments (if applicable): : REFERAL SENT TO [facility] Medication Management: : Evidence of High Risk Meds (check hospital policy) Planned post hospital services available for patient? : Yes Pharmacy name(s): : [facility] [address] Planned post hospital services covered by insurance plan? : Yes Does Patient have transportation to get home and to follow-up medical appointments when discharged from the hospital? : Yes Would patient like to participate in any Care Coordination programs (if applicable): : Not applicable Does the patient have electricity at home? : Yes Does the patient have running water in their house? : Yes Equipment in use: : None Mental health screen: : Currently under the care of mental health provider Mental health provider name and contact information: : DR NYA LOZADA Psychosocial status: : Adult with physical limitations Psychosocial status: : Adult with cognitive limitations Resources / Services in place: : Inpatient rehabilitation facility Contact information for resources in use: : WAS JUST [facility] Problems identified by the patient regarding discharge: : SOMEONE TO HELP CARE FOR HER DCP Re-evaluation QUESTION: ANSWER Would patient like to participate in any Care Coordination programs (if applicable): : Not applicable PATIENT: KB OLVERA ENCOUNTER: [id number] MEDICAL RECORD#: [id number] ADMISSION DATE: 12/18/2020 DISCHARGE DATE: ATTENDING MD: EVIE BEAVERS : AGE: 30 MARITAL STATUS: S DC PLAN ID: [id number] FACILITY: [facility] PRINTED ON: 12/23/20 14:56 CT All edits/amendments must be made on the electronic document DICTATION DATE: 12/23/201455 DIRECTOR MEDICAL SAFETY: HUGO 12/23/201455 RPT#: [id number] DC DATE: STATUS: ADM IN [facility] [address] [place] [address] END OF REPORT
--- NOTE | 2020-12-23 16:49 | NUR ---
OT NOTE: PT COMPLETED SUPINE TO SIT WITH SPV-MOD I. PT COMPLETED ADL MOB WITH SBA-MOD I. PT COMPLETED TOILETING AND HYGIENE TASKS WITH SPV. PT COMPLETED HAND HYGIENE AT SINK LEVEL WITH SBA. PT COMPLETED HAIR GROOMING AT SINK LEVEL WITH SBA. PT COMPLETED BUE AROM EXS TOLERATED AT EOB WITH SPV. [phone] THANK YOU,TATI TUBBS
[2020-12-23 16:57] VITALS: BP 120/777
--- NOTE | 2020-12-23 16:59 | MORECARE ---
CASE MANAGEMENT DISCHARGE SUMMARY PATIENT: KB OLVERA UNIT: [id number] ADM DATE: 12/18/20 AGE: 30 : 90 SEX: F ROOM/BED: D.9524 AUTHOR: SARABJIT,DOC PHYSICIAN: REFERRING PHYSICIAN: EVIE YANG MD DATE OF SERVICE: 12/23/20 Case Management Discharge Planning Summary COMMENTS ENTERED DATE: 12/23/20 16:40 CT COMMENT TYPE: Discharge Planning REVIEWER: Yolanda Garcia I spoke with patient at length about her discharge plan. She stated that her dad and her do not get along and that is why she did not want to go home. I explained to her about her insurance and what her options were. She chose to do outpatient therapy. The first choice did not take [facility]. I asked her about [facility] OP PT and she was good with that. She stated that she needed a time between 10:00-12:00 & that she would have transportation. I have made her appointment for MondayDecember 28 at 10:00am. She got instructions about OP PT in her discharge packet. I asked her about medical equipment and if she needed a walker or anything she did not think she did. I asked her if she had any other place to go and stay and she said she had a friend in the village that she could stay with. I encouraged her to talk to her mom about different living arrangements if she thought that was best. I also encouraged her to make an appointment with the [facility] office and see that there is any housing or services that she could get. She stated she understood and was going to speak with her mom about it. We did briefly talk about a jail, but there needed to be a need and she would have to have long term care social worker Medicaid. She currently is not working, but has in the past. She gets child support for her 5 year old son. When I walked back into her room she was standing and walking around in her room without any difficulties. She stated that she has been going to the bathroom on her home and did not have any problems with that at all. She did not want home health to come to her home. ENTERED DATE: 12/23/20 14:46 CT COMMENT TYPE: Discharge Planning REVIEWER: Yolanda Garcia I WAS TOLD 12/22/20 AFTER 1700 THAT THE MD HAD DENIED THE PATIENT TO COME TO REHAB UNFORTUNATELY I HAD ALREADY LEFT THE HOSPITAL AND WAS UNABLE TO TELL THE PATIENT AND THE MOTHER ABOUT THIS. I CALLED THE MOTHER THIS MORNING TO LET HER KNOW AND SHE DIDN'T UNDERSTAND WHY THIS HAPPENED. I TRIED TO EXPLAIN TO HER AGAIN IN ADDITION THAT THE PT NOTES STATES THAT SHE IS AMBULATING WITHOUT ANY DIFFICULTIES 250 FT WITHOUT ANY DME. I EXPLAINED TO HER THAT [facility] WILL PAY FOR HOME HEALTH OR OUTPATIENT THEARPY IF SHE NEEDED IT, BUT I DIDN'T THINK SHE DID BASED OFF THE THERAPY NOTES. I EXPLAINED TO HER THAT SHE THOUGHT HER DAUGHER NEEDED PT/OT THAT I COULD SET THAT UP IF SHE WANTED. SHE SAID THAT SHE WOULD NEED TO SPEAK TO HER AND ASKED THAT I CALL HER BACK I ATTEMPTED TO CALL HER BACK, BUT SHE DID NOT ANSWER THE PHONE. I LEFT A MESSAGE FOR HER TO RETURN MY CALL & AT THIS POINT I HAVE NOT HEARD FROM HER ENTERED DATE: 12/22/20 15:34 CT COMMENT TYPE: Discharge Planning REVIEWER: Yolanda Garay is here speaking with patient ENTERED DATE: 12/22/20 14:13 CT COMMENT TYPE: Discharge Planning REVIEWER: Yolanda GARAY WILL BE COMING OVER TO SEE THE PATIENT CM TO FOLLOW ENTERED DATE: 12/21/20 13:22 CT COMMENT TYPE: Discharge Planning REVIEWER: Yolanda Garcia CM met with patient to complete initial dc planning assessment. CM educated patient on the CM role and verbal consent given by patient to complete assessment. Patient lives at home with her mother, father and 5 year old son. Prior to this admission hospital stay she was recently discharged from [facility] for a 10 day stay there. She was discharged on MondayDecember 15. She see's Dr Nya Lozada . At discharge patient would like to physical therapy rehab before going home. Her mom, Faustino stated that she is "shuffling" instead of walking. The patient stated that she does not have any DME and did not need any prior to going to [facility]. I have sent the referral to [facility] and she is agreeable to go if accepted. I explained the difference home with home health and inpatient rehab which is her only options for PT. Patient denied known discharge needs at this time. CM will continue to follow and will assist as needed with dc plans/needs. DCP REVIEW SUMMARY ANTICIPATED D/C DATE: EXPECTED LOS : CASE STATUS: DCP Initiated INITIAL REVIEW: 12/18/2020 INITIAL REVIEWER: Yolanda Garcia FINAL DISCHARGE DISPOSITION: : FINAL REVIEWER: FINAL REVIEW DATE: DCP Focus Questions & Answers DCP Screen QUESTION: ANSWER High Risk Factors: : Psychological: Depression and/or major BH Dx req inter DCP Evaluation QUESTION: ANSWER Patient and/or caregiver agree upon recommended discharge plan? : Yes Family / Caregiver's ability to cope with chronic illness: : c. Inadequate (Enables pt. to make bad choices, cannot meet pt's. needs, difficult family dynamics) Patient's current cognitive status: : Intermittently confused / memory changes Patient gives permission to discuss discharge plans with: (name, relationship and number) : MOTHER Patient's ability to cope with chronic illness : a. Adequate (0-3 ED visits in 6 mos., adequate financial resources, attends scheduled appts.) Does the patient have the ability to pay for or attain post discharge needs / services? : Yes Functional screen assessment: : New onset in difficulty in gait, balance, or transfer difficulties Functional screen assessment: : Basic needs can adequately be met by self Family / Caregiver's ability to cope with chronic illness: : b. Minimal (occasionally not dependable to meet pt's. needs, can meet pt's. basic ADL's) Physical Status: : Partial care dependence Equipment needed for post hospitalization: : Walker - Rolling Is there a likelihood that the patient will require additional services to return to the preadmission environment? : Yes Functional screen comments: : NEEDS THEARPY Living Arrangements: : Home with Parents Partial Dependence, assistance required for: : Bathing Partial Dependence, assistance required for: : Ambulation / Mobility Results of this evaluation have been discussed with: : Guardian Patient with capacity for self-care or can be cared for in same environment as prior to hospitalization? : No Living arrangements comments: : LIVES WITH PARENTS & 5 YEAR OLD SON Baseline cognitive status: : *Oriented to person, place, situation, time and present Comments: : MOM IN ROOM WHILE I WAS SPEAKING WITH PATIENT Physical environment referral comments (if applicable): : REFERAL SENT TO [facility] Medication Management: : Evidence of High Risk Meds (check hospital policy) Planned post hospital services available for patient? : Yes Pharmacy name(s): : [facility] [address] Planned post hospital services covered by insurance plan? : Yes Does Patient have transportation to get home and to follow-up medical appointments when discharged from the hospital? : Yes Would patient like to participate in any Care Coordination programs (if applicable): : Not applicable Does the patient have electricity at home? : Yes Does the patient have running water in their house? : Yes Equipment in use: : None Mental health screen: : Currently under the care of mental health provider Mental health provider name and contact information: : DR NYA LOZADA Psychosocial status: : Adult with physical limitations Psychosocial status: : Adult with cognitive limitations Resources / Services in place: : Inpatient rehabilitation facility Contact information for resources in use: : WAS JUST [facility] Problems identified by the patient regarding discharge: : SOMEONE TO HELP CARE FOR HER DCP Re-evaluation QUESTION: ANSWER Would patient like to participate in any Care Coordination programs (if applicable): : Not applicable PATIENT: KB OLVERA ENCOUNTER: [id number] MEDICAL RECORD#: [id number] ADMISSION DATE: 12/18/2020 DISCHARGE DATE: ATTENDING MD: EVIE BEAVERS : AGE: 30 MARITAL STATUS: S DC PLAN ID: [id number] FACILITY: [facility] PRINTED ON: 12/23/20 16:59 CT All edits/amendments must be made on the electronic document DICTATION DATE: 12/23/201658 WOOD CRAFTER: HUGO 12/23/201658 RPT#: [id number] DC DATE: STATUS: ADM IN [facility] [address] [place] [address] END OF REPORT
--- NOTE | 2020-12-23 17:23 | NUR ---
D/C PAPERS SIGNED, WAITING FOR RIDE TO GET HERE.
--- NOTE | 2020-12-24 09:35 | MORECARE ---
CASE MANAGEMENT DISCHARGE SUMMARY PATIENT: KB OLVERA UNIT: [id number] ADM DATE: 12/18/20 AGE: 30 : 90 SEX: F ROOM/BED: D.9034 AUTHOR: SARABJIT,DOC PHYSICIAN: REFERRING PHYSICIAN: EVIE YANG MD DATE OF SERVICE: 12/24/20 Case Management Discharge Planning Summary COMMENTS ENTERED DATE: 12/23/20 16:40 CT COMMENT TYPE: Discharge Planning REVIEWER: Yolanda Garcia I spoke with patient at length about her discharge plan. She stated that her dad and her do not get along and that is why she did not want to go home. I explained to her about her insurance and what her options were. She chose to do outpatient therapy. The first choice did not take [facility]. I asked her about [facility] OP PT and she was good with that. She stated that she needed a time between 10:00-12:00 & that she would have transportation. I have made her appointment for MondayDecember 28 at 10:00am. She got instructions about OP PT in her discharge packet. I asked her about medical equipment and if she needed a walker or anything she did not think she did. I asked her if she had any other place to go and stay and she said she had a friend in the village that she could stay with. I encouraged her to talk to her mom about different living arrangements if she thought that was best. I also encouraged her to make an appointment with the [facility] office and see that there is any housing or services that she could get. She stated she understood and was going to speak with her mom about it. We did briefly talk about a intermediate, but there needed to be a need and she would have to have assistant terminal manager Medicaid. She currently is not working, but has in the past. She gets child support for her 5 year old son. When I walked back into her room she was standing and walking around in her room without any difficulties. She stated that she has been going to the bathroom on her home and did not have any problems with that at all. She did not want home health to come to her home. ENTERED DATE: 12/23/20 14:46 CT COMMENT TYPE: Discharge Planning REVIEWER: Yolanda Garcia I WAS TOLD 12/22/20 AFTER 1700 THAT THE MD HAD DENIED THE PATIENT TO COME TO REHAB UNFORTUNATELY I HAD ALREADY LEFT THE HOSPITAL AND WAS UNABLE TO TELL THE PATIENT AND THE MOTHER ABOUT THIS. I CALLED THE MOTHER THIS MORNING TO LET HER KNOW AND SHE DIDN'T UNDERSTAND WHY THIS HAPPENED. I TRIED TO EXPLAIN TO HER AGAIN IN ADDITION THAT THE PT NOTES STATES THAT SHE IS AMBULATING WITHOUT ANY DIFFICULTIES 250 FT WITHOUT ANY DME. I EXPLAINED TO HER THAT [facility] WILL PAY FOR HOME HEALTH OR OUTPATIENT THEARPY IF SHE NEEDED IT, BUT I DIDN'T THINK SHE DID BASED OFF THE THERAPY NOTES. I EXPLAINED TO HER THAT SHE THOUGHT HER DAUGHER NEEDED PT/OT THAT I COULD SET THAT UP IF SHE WANTED. SHE SAID THAT SHE WOULD NEED TO SPEAK TO HER AND ASKED THAT I CALL HER BACK I ATTEMPTED TO CALL HER BACK, BUT SHE DID NOT ANSWER THE PHONE. I LEFT A MESSAGE FOR HER TO RETURN MY CALL & AT THIS POINT I HAVE NOT HEARD FROM HER ENTERED DATE: 12/22/20 15:34 CT COMMENT TYPE: Discharge Planning REVIEWER: Yolanda Garay is here speaking with patient ENTERED DATE: 12/22/20 14:13 CT COMMENT TYPE: Discharge Planning REVIEWER: Yolanda GARAY WILL BE COMING OVER TO SEE THE PATIENT CM TO FOLLOW ENTERED DATE: 12/21/20 13:22 CT COMMENT TYPE: Discharge Planning REVIEWER: Yolanda Garcia CM met with patient to complete initial dc planning assessment. CM educated patient on the CM role and verbal consent given by patient to complete assessment. Patient lives at home with her mother, father and 5 year old son. Prior to this admission hospital stay she was recently discharged from [facility] for a 10 day stay there. She was discharged on MondayDecember 15. She see's Dr Nya Lozada . At discharge patient would like to physical therapy rehab before going home. Her mom, Faustino stated that she is "shuffling" instead of walking. The patient stated that she does not have any DME and did not need any prior to going to [facility]. I have sent the referral to [facility] and she is agreeable to go if accepted. I explained the difference home with home health and inpatient rehab which is her only options for PT. Patient denied known discharge needs at this time. CM will continue to follow and will assist as needed with dc plans/needs. DCP REVIEW SUMMARY ANTICIPATED D/C DATE: EXPECTED LOS : 0 CASE STATUS: DCP Complete INITIAL REVIEW: 12/18/2020 INITIAL REVIEWER: Yolanda Garcia FINAL DISCHARGE DISPOSITION: 01 : Home or Self Care (Routine Discharge) FINAL REVIEWER: Yolanda Garcia FINAL REVIEW DATE: 12/24/2020 DCP Focus Questions & Answers DCP Screen QUESTION: ANSWER High Risk Factors: : Psychological: Depression and/or major BH Dx req inter DCP Evaluation QUESTION: ANSWER Patient and/or caregiver agree upon recommended discharge plan? : Yes Family / Caregiver's ability to cope with chronic illness: : c. Inadequate (Enables pt. to make bad choices, cannot meet pt's. needs, difficult family dynamics) Patient's current cognitive status: : Intermittently confused / memory changes Patient gives permission to discuss discharge plans with: (name, relationship and number) : MOTHER Patient's ability to cope with chronic illness : a. Adequate (0-3 ED visits in 6 mos., adequate financial resources, attends scheduled appts.) Does the patient have the ability to pay for or attain post discharge needs / services? : Yes Functional screen assessment: : New onset in difficulty in gait, balance, or transfer difficulties Functional screen assessment: : Basic needs can adequately be met by self Family / Caregiver's ability to cope with chronic illness: : b. Minimal (occasionally not dependable to meet pt's. needs, can meet pt's. basic ADL's) Physical Status: : Partial care dependence Equipment needed for post hospitalization: : Walker - Rolling Is there a likelihood that the patient will require additional services to return to the preadmission environment? : Yes Functional screen comments: : NEEDS THEARPY Living Arrangements: : Home with Parents Partial Dependence, assistance required for: : Bathing Partial Dependence, assistance required for: : Ambulation / Mobility Results of this evaluation have been discussed with: : Guardian Patient with capacity for self-care or can be cared for in same environment as prior to hospitalization? : No Living arrangements comments: : LIVES WITH PARENTS & 5 YEAR OLD SON Baseline cognitive status: : *Oriented to person, place, situation, time and present Comments: : MOM IN ROOM WHILE I WAS SPEAKING WITH PATIENT Physical environment referral comments (if applicable): : REFERAL SENT TO [facility] Medication Management: : Evidence of High Risk Meds (check hospital policy) Planned post hospital services available for patient? : Yes Pharmacy name(s): : [facility] [address] Planned post hospital services covered by insurance plan? : Yes Does Patient have transportation to get home and to follow-up medical appointments when discharged from the hospital? : Yes Would patient like to participate in any Care Coordination programs (if applicable): : Not applicable Does the patient have electricity at home? : Yes Does the patient have running water in their house? : Yes Equipment in use: : None Mental health screen: : Currently under the care of mental health provider Mental health provider name and contact information: : DR NYA LOZADA Psychosocial status: : Adult with physical limitations Psychosocial status: : Adult with cognitive limitations Resources / Services in place: : Inpatient rehabilitation facility Contact information for resources in use: : WAS JUST IN [facility] Problems identified by the patient regarding discharge: : SOMEONE TO HELP CARE FOR HER DCP Re-evaluation QUESTION: ANSWER Would patient like to participate in any Care Coordination programs (if applicable): : Not applicable PATIENT: KB OLVERA ENCOUNTER: [id number] MEDICAL RECORD#: [id number] ADMISSION DATE: 12/18/2020 DISCHARGE DATE: 12/23/2020 ATTENDING MD: EVIE BEAVERS : AGE: 30 MARITAL STATUS: S DC PLAN ID: [id number] FACILITY: [facility] PRINTED ON: 12/24/20 9:35 CT All edits/amendments must be made on the electronic document DICTATION DATE: 12/24/20 0935 AIRPLANE TESTER: HUGO 12/24/20 0935 RPT#: [id number] DC DATE:12/23/20 STATUS: DIS IN [facility] [address] [place] [address] END OF REPORT
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
== END 2020-12-23 18:41 | disposition home or self-care (01) | DRG 93 ==
LOC: D.ER 13:20 → D.MS 15:32
PROVIDERS: Family Medicine; ADMIT Emergency Medicine; ATTEND Emergency Medicine
DX: G21.0 Malignant neuroleptic syndrome (principal); F20.9 Schizophrenia, unspecified; T43.4X5A Adverse effect of butyrophenone and thiothixene neuroleptics, initial encounter; T43.225A Adverse effect of selective serotonin reuptake inhibitors, initial encounter

== ENCOUNTER 2020-12-25 08:05 | Emergency (ER) | payer MEDICAID ==
[~2020-12-25] VITALS: Ht 170.2 cm; Wt 86.4 kg
[~2020-12-25 08:05] MED LIST: ATIVAN1 MG PO; HALDOL5 MG PO; ZOLOFT100 MG PO
[2020-12-25 08:21] VITALS: BP 117/71; Ht 170.2 cm; Wt 86.4 kg
[2020-12-25] MEDS ORDERED: ATIVAN1 MG PO (09:39)
[2020-12-25] MEDS ORDERED: ATIVAN0.5 MG PO (10:30)
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
== END 2020-12-25 13:24 | disposition home or self-care (01) ==
LOC: D.ER 08:05
DX: G24.9 Dystonia, unspecified (principal); T43.4X5A Adverse effect of butyrophenone and thiothixene neuroleptics, initial encounter

== ENCOUNTER 2020-12-26 07:37 | Inpatient (IN) | payer MEDICAID ==
[~2020-12-26] VITALS: Ht 170.2 cm; Wt 92.3 kg
[2020-12-26] VITALS (11 sets, daily range): BP systolic 108–144; BP diastolic 63–101; Ht 170.2 cm; Wt 92.3 kg
[~2020-12-26 07:37] MED LIST changes: +ATIVAN0.5 MG PO
--- NOTE | 2020-12-26 08:10 | NUR ---
BLOOD SPECIMENS OBTAINEDD WITH IV STICK AND SENT TO LAB.
[2020-12-26 08:19] LABS: BASOPHILS 0.3 % (0-2); EOSINOPHILS 0.9 % (0-7); HEMATOCRIT 38.6 % (36.0-48.0); HEMOGLOBIN 13.2 g/dL (12-16); IMMATURE GRANULOCYTES 0.3 % (0-5); LYMPHOCYTE ABS# 2.19 10x3/uL (1.18-3.74); LYMPHOCYTES 15.3 % (15-50); MCH 30.2 pg (26.0-34.0); MCHC 34.2 g/dL (31.0-37.0); MCV 88.3 fL (80.0-100.0); MEAN PLATELET VOLUME 9.9 fL (7.4-10.4); MONOCYTES 8.1 % (2-11); NEUTROPHIL ABS# 10.79 10x3/uL (1.56-6.13); NEUTROPHILS 75.1 % (40-80); PLATELET COUNT 352 10x3/uL (130-400); RBC 4.37 10x6/uL (4.00-5.40); RDW 12.8 % (11.5-14.5); WBC 14.4 10x3/uL (4.8-10.8)
--- NOTE | 2020-12-26 08:20 | NUR ---
ON BEDPAN WITH ASSISTANCE. URINE SPECIMEN TO LAB.
[2020-12-26 08:30] LABS: CALC OSMOLALITY 273 mosm/kg (275-300); CALCIUM 10.1 mg/dL (8.5-10.1); CARBON DIOXIDE 24.7 mmol/L (21.0-32.0); CHLORIDE - SERUM 99 mmol/L (98-107); CREATININE - SERUM 0.8 mg/dL (0.6-1.3); GLUCOSE 112 mg/dL (74-106); POTASSIUM - SERUM 3.5 mmol/L (3.5-5.1); SODIUM 136 mmol/L (136-145); UREA NITROGEN 14 mg/dL (7-18); eGFR NON AFRICAN AMERICAN 89 mL/min (90-120)
--- NOTE | 2020-12-26 08:35 | NUR ---
PATIENT ASSISTED WITH BED VIVAS, VOID X 1 CLEAR YELLOW URINE. PATIENT ASSISTED TO POSITION OF COMFORT, BED RAISED TO 30 DEGREES, THEN LOWERED BACK TO 15 DEGREES PER REQUEST. NOTIFIED PATIENT TO CALL FOR ANY NEEDS.
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
[2020-12-26 08:44] LABS: BILIRUBIN NEGATIVE (NEGATIVE); KETONE NEGATIVE (NEGATIVE); NITRITE NEGATIVE (NEGATIVE); UROBILINOGEN NORMAL mg/dL (< 2)
[2020-12-26 08:46] LABS: ALBUMIN 4.3 g/dL (3.4-5.0); ALKALINE PHOSPHATASE 43 U/L (30-120); ALT (SGPT) 285 U/L (10-68); BILIRUBIN - TOTAL 0.33 mg/dL (0.2-1.3); CKMB 6.6 U/L (0.0-3.6); CREATINE KINASE 769 UL (21-215); LDH 284 U/L (81-234); MAGNESIUM - SERUM 2.2 mg/dL (1.8-2.4); PHOSPHOROUS 3.5 mg/dL (2.5-4.9); PROTEIN - SERUM 7.9 g/dL (6.4-8.2); URIC ACID 3.7 mg/dL (2.6-7.2)
[2020-12-26 08:46] LABS: HCG URINE NEGATIVE (NEGATIVE)
[2020-12-26 08:47] LABS: ACETAMINOPHEN < 10.0 ug/mL (10.0-30.0); TROPONIN-I < 0.017 ng/mL (0.000-0.060)
--- NOTE | 2020-12-26 08:54 | NUR ---
PATIENT ASSISTED WITH BEDPAN. BLADDER SCANNED, 88ML IDENTIFIED. DR SOLER NOTIFIED OF RESULTS AND FREQUENT URINATION.
[2020-12-26 08:58] LABS: UDS - AMPHET NEGATIVE QUAL (NEGATIVE); UDS - BARB NEGATIVE QUAL (NEGATIVE); UDS - BENZO POSITIVE QUAL (NEGATIVE); UDS - COCAINE NEGATIVE QUAL (NEGATIVE); UDS - OPIATE NEGATIVE QUAL (NEGATIVE); UDS - PCP NEGATIVE QUAL (NEGATIVE); UDS - THC NEGATIVE QUAL (NEGATIVE)
--- NOTE | 2020-12-26 09:04 | NUR ---
[facility] CALLED STATING THAT THEY ARE ON THEIR WAY.
--- NOTE | 2020-12-26 09:20 | NUR ---
NS 1000ML FLUID BOLUS STARTED VIA GRAVITY INFUSION. ATIVAN 2MG IV GIVEN PER ORDER. PATIENT EDUCATION GIVEN ON ATIVAN. PATIENT ASKS "CAN I SOME MORE?". INSTRUCTED ON FREQUENCY OF EVERY 2 HOURS NEEDED.
--- NOTE | 2020-12-26 09:23 | NUR ---
PATIENT IS OUT OF BED OFF THE END OF THE STRETCHER ASKING FOR HELP. ASKS WHY IT IS TAKING SO LONG FOR HELP. PATIENT REMINDED THAT NURSES HAVE BEEN IN HER ROOM FREQUENTLY IN RESPONSE TO CALL LIGHT. PATIENT IS ASSISTED BACK TO BED AND REMINDED OF FALL RISK AND TO CALL FOR HELP, DO NOT GET OUT OF BED UNASSISTED SHE MAY DO HERSELF HARM. PATIENT STATES "I HAVE A FEVER". PATIENT NOTED TO BE SWEATING. ORAL TEMP 98.0, TYMPANIC TEMP 99.4. TYLENOL 650MG GIVEN.
--- NOTE | 2020-12-26 09:47 | NUR ---
PATIENT IS LYING QUIETLY IN BED. NO MUSCLE TREMORS SEEN AT THIS TIME.
--- NOTE | 2020-12-26 10:30 | NUR ---
ASSISTED TO AMBULATE TO BATHROOM. PATIENT WALKS WITH A STIFF, SHUFFELING GAIT BUT IS STEADY ON HER FEET. ASSISTED BACK TO BED. ORANGE JUICE GIVEN.
--- NOTE | 2020-12-26 11:15 | NUR ---
ASSISTED TO AMBULATE TO BATHROOM. STEADY ON HER FEET WITH LITTLE MUSCLE TREMOR. ORANGE JUICE GIVEN PER REQUEST.
--- NOTE | 2020-12-26 12:30 | NUR ---
ADMITTED FROM ER, AMBULATED TO BED FROM STRETCHER, MOVES SLOWLY AND STIFFLY, NEEDS ASSISTANCES TO AMBULATE. ANSWERS QUESTIONS APPRIOPIATELY KNOWS WHAT MONTH AND DATE IT IS, KNOW WHO THE PRESIDENT IS. SLOW SPEAKING, BUT CLEAR. TREMORS NOTED WHEN IN BED, WHEN POSITIONED IN BED TREMORS WOULD STOP FOR A SHORT TIME, THEN TREMORS WOULD RESUME, CHANGE POSITION AGAIN AND TREMORS WOULD SLOW DOWN AND STOP, THEN RESUME AGAIN. ATIVAN GIVEN FOR TREMORS DID HELP. STILL HAVING TREMORS AT TIMES.
--- NOTE | 2020-12-26 13:45 | NUR ---
DR. MILES AND [facility] NOTIFIED OF CONSULTS.
--- NOTE | 2020-12-26 14:25 | NUR ---
UP TO BSC, AMBULATE WITH ASSISTANCES, SMALL LIGHT TREMORS NOTED. Sunshine SZYMANSKI APN FROM [facility] HERE
--- NOTE | 2020-12-26 14:42 | NUR ---
LUNCH TRAY SERVED. ATE STATED SHE WAS HUNGRY. FEED SELF. NO COUGHING OR DIFFICUTLY SWALLOWING NOTED WITH FOOD OR WATER. DRANK 2 CUPS OF WATER. ATE 25% OF FOOD
[2020-12-27] VITALS (24 sets, daily range): BP systolic 92–145; BP diastolic 51–108
[2020-12-27 04:30] LABS: BASOPHILS 0.4 % (0-2); EOSINOPHILS 1.4 % (0-7); HEMATOCRIT 38.1 % (36.0-48.0); HEMOGLOBIN 12.7 g/dL (12-16); IMMATURE GRANULOCYTES 0.3 % (0-5); LYMPHOCYTE ABS# 2.39 10x3/uL (1.18-3.74); LYMPHOCYTES 21.2 % (15-50); MCH 30.2 pg (26.0-34.0); MCHC 33.3 g/dL (31.0-37.0); MEAN PLATELET VOLUME 9.8 fL (7.4-10.4); MONOCYTES 8.5 % (2-11); NEUTROPHIL ABS# 7.71 10x3/uL (1.56-6.13); NEUTROPHILS 68.2 % (40-80); PLATELET COUNT 368 10x3/uL (130-400); RDW 12.9 % (11.5-14.5); WBC 11.3 10x3/uL (4.8-10.8)
[2020-12-27 04:49] LABS: MCV 90.7 fL (80.0-100.0)
[2020-12-27 04:56] LABS: ALBUMIN 3.8 g/dL (3.4-5.0); ALKALINE PHOSPHATASE 39 U/L (30-120); AMYLASE - SERUM 70 U/L (25-115); BILIRUBIN - TOTAL 0.43 mg/dL (0.2-1.3); CALCIUM 9.2 mg/dL (8.5-10.1); CARBON DIOXIDE 24.8 mmol/L (21.0-32.0); CHLORIDE - SERUM 101 mmol/L (98-107); CREATININE - SERUM 0.8 mg/dL (0.6-1.3); GLUCOSE 105 mg/dL (74-106); LIPASE 176 U/L (73-393); PHOSPHOROUS 3.3 mg/dL (2.5-4.9); POTASSIUM - SERUM 3.6 mmol/L (3.5-5.1); PROTEIN - SERUM 7.2 g/dL (6.4-8.2); SODIUM 137 mmol/L (136-145); eGFR NON AFRICAN AMERICAN 89 mL/min (90-120)
[2020-12-27 04:58] LABS: UREA NITROGEN 8 mg/dL (7-18)
[2020-12-27 04:59] LABS: ALT (SGPT) 213 U/L (10-68); CALC OSMOLALITY 271 mosm/kg (275-300); CREATINE KINASE 532 UL (21-215)
--- NOTE | 2020-12-27 08:27 | NUR ---
REPORTS TREMORS, TREMORS VISIBLE. ATIVAN GIVEN. IV OUT ON L HAND, REINSERTED IV TO R WRIST. REPORTS SHE CANNOT FEED HERSELF, THEN IS SEEN FEEDING HERSELF. GETTING OOB AND CANNOT BE REDIRECTED. FALL ALARM ON.
--- NOTE | 2020-12-27 13:23 | NUR ---
PT CONTINUALLY ATTEMPTING TO GET OOB. CANNOT BE REDIRECTED. DR. EDOUARD PAGED WHO OKS RESTRAINTS LONG PSYCH OKS IT. JANETT SZYMANSKI APN, CALLED AND ORDERS RESTRAINTS AND PRN IM BENADRYL.
--- NOTE | 2020-12-27 15:15 | NUR ---
IV FOUND OUT. RESTARTED 20 G IV TO R FA X 1 ATTEMPT. TOLERATED WELL.
--- NOTE | 2020-12-27 18:08 | NUR ---
UP TO BSC W/ MY ASSIST, SHE STARTED TO LEAN IF SHE WAS GOING TO FALL, MOVED HER BACK INTO BED WITH MAX ASSIST BY ME. PUREWICK APPLIED AND RESTRAINTS REAPPLIED. BED ALARM ON.
--- NOTE | 2020-12-27 20:00 | NUR ---
REC'D AWAKE, IN BED IN АННА SOFT WRIST RESTRAINTS TO PROTECT PIV, PUREWICK AMD OTHER INVASIVE DEVICES. RELEASED, ROM DONE AND RETIED. REPOSITIONED IN BED. INITIAL ASSESSMENT COMPLETED AND RECORDED PER FLOW SHEET. RIGHT FOREARM PIV PATENT WITH NS @ 125 ML/HR, SITE CLEAR OF REDNESS & EDEMA. SPEECH IS RANDOM,DISCONNECTED.KEEPS REQUESTING WATER. WILL MONITOR.
[2020-12-28] VITALS (9 sets, daily range): BP systolic 100–141; BP diastolic 56–91
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
[2020-12-28 04:27] LABS: BASOPHILS 0.3 % (0-2); EOSINOPHILS 1.4 % (0-7); HEMATOCRIT 39.1 % (36.0-48.0); IMMATURE GRANULOCYTES 0.2 % (0-5); LYMPHOCYTES 21.2 % (15-50); MCH 29.8 pg (26.0-34.0); MCHC 33.2 g/dL (31.0-37.0); MCV 89.7 fL (80.0-100.0); MEAN PLATELET VOLUME 9.7 fL (7.4-10.4); MONOCYTES 8.5 % (2-11); NEUTROPHIL ABS# 8.71 10x3/uL (1.56-6.13); NEUTROPHILS 68.4 % (40-80); PLATELET COUNT 391 10x3/uL (130-400); RBC 4.36 10x6/uL (4.00-5.40); RDW 12.7 % (11.5-14.5); WBC 12.8 10x3/uL (4.8-10.8)
[2020-12-28 04:50] LABS: ALBUMIN 3.7 g/dL (3.4-5.0); ALKALINE PHOSPHATASE 38 U/L (30-120); ALT (SGPT) 163 U/L (10-68); CALC OSMOLALITY 273 mosm/kg (275-300); CALCIUM 9.2 mg/dL (8.5-10.1); CARBON DIOXIDE 26.2 mmol/L (21.0-32.0); CHLORIDE - SERUM 102 mmol/L (98-107); CKMB 2.4 U/L (0.0-3.6); CREATININE - SERUM 0.9 mg/dL (0.6-1.3); GLUCOSE 96 mg/dL (74-106); MAGNESIUM - SERUM 2.1 mg/dL (1.8-2.4); PHOSPHOROUS 3.9 mg/dL (2.5-4.9); POTASSIUM - SERUM 3.5 mmol/L (3.5-5.1); PROTEIN - SERUM 7.3 g/dL (6.4-8.2); SODIUM 138 mmol/L (136-145); UREA NITROGEN 7 mg/dL (7-18); eGFR NON AFRICAN AMERICAN 78 mL/min (90-120)
[2020-12-28 05:17] LABS: CREATINE KINASE 383 UL (21-215)
--- NOTE | 2020-12-28 07:00 | NUR ---
REPORT RECEIVED. ASSESSMENT COMPLETE PER FLOW SHEET. VSS. PT RESTING COMFORTABLY
--- NOTE | 2020-12-28 10:10 | NUR ---
Nutrition follow-up: Diet: Regular PO intake ~50% average of meals Labs reviewed Wt: 206# PO intake is fair to good at meals Will continue to provide food choices and honor food preferences. Follow-up: 12/31/29
--- NOTE | 2020-12-28 14:15 | NUR ---
PATIENT SITTING UP IN CHAIR ALERT AND OREIENTED X4. ORIENTED TO ROOM AND ENCOURAGED TO USE CALL LIGHT FOR ASSSIT AND VERBALIZED UNDERSTANDING.
--- NOTE | 2020-12-28 19:00 | NUR ---
BEDSIDE REPORT RECEIVED AND CARE OF PT ASSUMED. PT LYING IN LOW GALLEGO'S POSITION WATCHING TV. IV TO RIGHT FA PATENT WITH NS INFUSING AT 125 ML/HR. WILL MONITOR FOR NEEDS. BED ALARM IN USE FOR SAFETY.
--- NOTE | 2020-12-28 20:38 | NUR ---
HS MEDICATIONS GIVEN TO INCLUDE ATIVAN 1 MG IVP PER REQUEST FOR ANXIETY.
--- NOTE | 2020-12-28 22:00 | NUR ---
PT CONTINUOUSLY TRYING TO CALL HER MOM TO COME AND GET HER...ATTEMPTS TO RE-ORIENT UNSUCCESSFUL AT THIS TIME.
--- NOTE | 2020-12-28 22:52 | NUR ---
PT FINALLY RESTING WITH EYES CLOSED. BED ALARM IN USE FOR SAFETY.
--- NOTE | 2020-12-29 00:34 | NUR ---
ASSISTED PT UP TO USE RESTROOM...VERY LETHARGIC. POSITIONED BACK IN BED FOR COMFORT AFTER REPLACING BEDPADS. BED ALARM IN USE FOR SAFETY.
--- NOTE | 2020-12-29 01:07 | NUR ---
ALARM SOUNDING EVERY FEW MINUTES WITH PT CLIMBING OVER THE BEDRAIL. TOOK TO THE BATHROOM 4 TIMES IN LAST 15 MINUTES...CONTINUES TO GET UP. TRYING TO RE-ORIENTATE AND ASK HER TO STAY IN BED....SHE STATES SHE DOSN'T WANT TO BE ALONE. THEN PT STATES SHE IS SUICIDAL. CALLED FLUTE TEACHER WHO ADVISED TO CALL PSYCH FOR A SUICIDE SCREENING.
--- NOTE | 2020-12-29 02:23 | NUR ---
DR SWENSON NOTIFIED AND SITTER ORDERED. SITTER AT BEDSIDE. NOTIFIED CHARGE NURSE IN REGARDS TO ASSESSMENT AND FINDINGS. RESOURCES GIVEN TO PT AND SAFETY PLAN INITIATED.
[2020-12-29 04:00] VITALS: BP 132/83
[2020-12-29 07:36] LABS: BASOPHILS 0.3 % (0-2); EOSINOPHILS 1.4 % (0-7); HEMATOCRIT 38.9 % (36.0-48.0); IMMATURE GRANULOCYTES 0.3 % (0-5); LYMPHOCYTE ABS# 2.13 10x3/uL (1.18-3.74); LYMPHOCYTES 17.9 % (15-50); MCHC 33.4 g/dL (31.0-37.0); MCV 89.8 fL (80.0-100.0); MEAN PLATELET VOLUME 10.1 fL (7.4-10.4); MONOCYTES 8.9 % (2-11); NEUTROPHIL ABS# 8.44 10x3/uL (1.56-6.13); NEUTROPHILS 71.2 % (40-80); PLATELET COUNT 405 10x3/uL (130-400); RBC 4.33 10x6/uL (4.00-5.40); RDW 13.1 % (11.5-14.5); WBC 11.9 10x3/uL (4.8-10.8)
[2020-12-29 07:44] LABS: ALKALINE PHOSPHATASE 38 U/L (30-120); ALT (SGPT) 129 U/L (10-68); BILIRUBIN - TOTAL 0.34 mg/dL (0.2-1.3); CALC OSMOLALITY 275 mosm/kg (275-300); CALCIUM 9.5 mg/dL (8.5-10.1); CARBON DIOXIDE 25.9 mmol/L (21.0-32.0); CHLORIDE - SERUM 102 mmol/L (98-107); CKMB 2.5 U/L (0.0-3.6); CREATINE KINASE 292 UL (21-215); CREATININE - SERUM 0.7 mg/dL (0.6-1.3); GLUCOSE 105 mg/dL (74-106); MAGNESIUM - SERUM 2.2 mg/dL (1.8-2.4); PHOSPHOROUS 3.7 mg/dL (2.5-4.9); POTASSIUM - SERUM 3.4 mmol/L (3.5-5.1); PROTEIN - SERUM 7.4 g/dL (6.4-8.2); SODIUM 139 mmol/L (136-145); UREA NITROGEN 7 mg/dL (7-18); eGFR NON AFRICAN AMERICAN > 90 mL/min (90-120)
--- NOTE | 2020-12-29 07:52 | NUR ---
RESTING IN BED WITH EYES CLOSED, EASILY AROUSED TO SPEECH. SITTER AT THE BEDSIDE. IV LOCATED TO RIGHT FA CURRENTLY RUNNING NS @ 125ML/HR. NO CURRENT S/S OF DISTRESS, DENIES CURRENT NEEDS, WILL CONT TO MONITOR.
[2020-12-29 09:37] VITALS: BP 130/80
[2020-12-29 12:04] VITALS: BP 117/72
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
[2020-12-29 16:51] VITALS: BP 129/74
[2020-12-29 20:40] VITALS: BP 12/86
[2020-12-30 01:49] VITALS: BP 147/85
--- NOTE | 2020-12-30 06:10 | NUR ---
I have reviewed this patient and I concur with the Shift Assessment completed by the Licensed Practical Nurse today this shift.
[2020-12-30 06:30] VITALS: BP 163/85
[2020-12-30 06:50] LABS: BASOPHILS 0.3 % (0-2); EOSINOPHILS 1.7 % (0-7); HEMATOCRIT 37.5 % (36.0-48.0); HEMOGLOBIN 12.5 g/dL (12-16); IMMATURE GRANULOCYTES 0.2 % (0-5); LYMPHOCYTE ABS# 2.62 10x3/uL (1.18-3.74); MCH 30.1 pg (26.0-34.0); MCHC 33.3 g/dL (31.0-37.0); MCV 90.4 fL (80.0-100.0); MEAN PLATELET VOLUME 10.1 fL (7.4-10.4); MONOCYTES 8.2 % (2-11); NEUTROPHIL ABS# 6.79 10x3/uL (1.56-6.13); NEUTROPHILS 64.6 % (40-80); PLATELET COUNT 365 10x3/uL (130-400); RBC 4.15 10x6/uL (4.00-5.40); RDW 13.1 % (11.5-14.5); WBC 10.5 10x3/uL (4.8-10.8)
[2020-12-30 07:28] LABS: ALBUMIN 3.6 g/dL (3.4-5.0); ALKALINE PHOSPHATASE 34 U/L (30-120); BILIRUBIN - TOTAL 0.41 mg/dL (0.2-1.3); CALCIUM 9.1 mg/dL (8.5-10.1); CARBON DIOXIDE 27.4 mmol/L (21.0-32.0); CHLORIDE - SERUM 103 mmol/L (98-107); CKMB 1.3 U/L (0.0-3.6); CREATINE KINASE 181 UL (21-215); CREATININE - SERUM 0.7 mg/dL (0.6-1.3); GLUCOSE 95 mg/dL (74-106); MAGNESIUM - SERUM 2.1 mg/dL (1.8-2.4); PHOSPHOROUS 3.8 mg/dL (2.5-4.9); POTASSIUM - SERUM 3.4 mmol/L (3.5-5.1); PROTEIN - SERUM 6.8 g/dL (6.4-8.2); SODIUM 139 mmol/L (136-145); eGFR NON AFRICAN AMERICAN > 90 mL/min (90-120)
[2020-12-30 07:32] LABS: ALT (SGPT) 95 U/L (10-68); CALC OSMOLALITY 274 mosm/kg (275-300); UREA NITROGEN 5 mg/dL (7-18)
--- NOTE | 2020-12-30 07:39 | NUR ---
RESTING IN BED WITH EYES CLOSED, EASILY AROUSED TO SPEECH. IV LOCATED TO RIGHT FA CURRENTLY RUNNING NS @ 125ML/HR. NO CURRENT S/S OF DISTRESS, WILL CONT TO MONITOR.
[2020-12-30 09:23] VITALS: BP 113/59
[2020-12-30 13:30] VITALS: BP 120/74
--- NOTE | 2020-12-30 15:03 | PN ---
PATIENT:KB OLVERA MEDICAL RECORD: [id number] LOCATION:[facility] ADMISSION DATE: 12/26/20 PROGRESS NOTE DATE OF SERVICE: 12/29/2020 SUBJECTIVE: The patient's case was discussed with staff. She has no new complaint. OBJECTIVE: The patient is now reporting suicidal thoughts. She reported them to me, but then when I mentioned psychiatric hospitalization, she changed and said she had not had them since last night. This is of concern. I am not sure what the source of this inconsistency is, but I continued to have the opinion that she is potentially at risk. ASSESSMENT: Major depression. PLAN: The patient's movement in her arms and legs has dramatically decreased. I am going to reduce her dose of Valium today. She is going to be maintained with a sitter and I will reassess the situation tomorrow. TRANSINT:[id number] Voice Confirmation ID: [id number] DOCUMENT ID: [id number] JAZIEL SWENSON MD at 1503 CC: [id number] DICTATION DATE: 12/29/20 1545 BUSGIRL: 12/29/202126 ADM IN [facility] [address] [place] [address]
--- NOTE | 2020-12-30 15:31 | NUR ---
OT NOTE: PT COMPLETED ADL MOB WITH SBA. PT EASILY DISTRACTED AND REQUIRED CUES FOR ATTENTION TO TASK. PT REQUIRED VERBAL CUES TO AVOID WALKING INTO WALL OR DOORWAY. PT COMPLETED EOB SITTING WITH SPV. PT COMPLETED HAIR GROOMING WITH SETUP. PT COMPLETED FACE HYGIENE WITH SETUP. PT REQUIRED EXTENDED TIME. [id number] RACHEL PIZNON COTA
[2020-12-30] MEDS ORDERED: PROPRANOLOL HCL20 MG PO (16:42)
[2020-12-30] MEDS ORDERED: EFFEXOR37.5 MG PO (16:42)
[2020-12-30] MEDS ORDERED: VALIUM 2 MG TAB2 MG PO (16:43)
[2020-12-30 17:14] VITALS: BP 125/93
--- NOTE | 2020-12-30 17:40 | NUR ---
IV OUT, DC PAPERS SIGNED, WAITING FOR HER MOTHER TO GET HERE TO PICK HER UP, PT STATES SHE TOLD HER MOM TO BE HERE BY 5:00PM, MOTHER TOLD ME SHE WOULD BE HERE BY 1830.
--- NOTE | 2020-12-31 11:38 | PN ---
PATIENT:KB OLVERA MEDICAL RECORD: [id number] LOCATION:[facility] ADMISSION DATE: 12/26/20 PROGRESS NOTE DATE OF SERVICE: 12/30/2020 SUBJECTIVE: The patient's case was discussed with staff. She has no new complaint. OBJECTIVE: The patient is much better today. She has been walking up and down the guerrero. She has insight about her situation and is strongly denying any suicidal thought. ASSESSMENT: No change in diagnosis. PLAN: The patient's sitter may be discontinued. You may also discontinue the search for psychiatric hospitalization. She can be discharged from the hospital whenever she is considered medically and neurologically stable. TRANSINT:[id number] Voice Confirmation ID: [id number] DOCUMENT ID: [id number] JAZIEL SWENSON MD at 1138 CC: [id number] DICTATION DATE: 12/30/20 1530 DECORATING AND ASSEMBLY SUPERVISOR: 12/30/20 1721 DIS IN 12/30/20 [facility] [address] [place] [address]
== END 2020-12-30 19:18 | disposition home or self-care (01) | DRG 92 ==
LOC: D.ER 07:37 → D.ICU 08:59 → D.MS 08:59
PROVIDERS: Family Medicine; ADMIT Emergency Medicine; ATTEND Emergency Medicine
DX: G21.0 Malignant neuroleptic syndrome (principal); M62.82 Rhabdomyolysis; G24.9 Dystonia, unspecified; D72.829 Elevated white blood cell count, unspecified; R74.01 Elevation of levels of liver transaminase levels; F20.9 Schizophrenia, unspecified; R00.0 Tachycardia, unspecified